=== PATIENT | female | born 1935 | race Caucasian/White ===

== ENCOUNTER 2021-10-15 08:49 | Inpatient (IN) | payer MEDICARE, SELFPAY ==
[2021-10-15] VITALS (30 sets, daily range): BP systolic 125–146; BP diastolic 60–91; PULSE 55–79; RESP 14–32; TEMP 36.6–36.9; O2SAT 92–100; BMI 32.3
--- NOTE | 2021-10-15 | ECHO_ITS ---
Patient Info Name: Lyudmila Stapleton Age: 85 years : 1935 Gender: Female Ht: 67 in Wt: 206 lbs BSA: 2.13 m2 HR: 65 bpm BP: 130 / 63 mmHg Exam Date: 10/15/2021 4:04 PM Exam Location: [facility] Patient Status: Inpatient Admit Date: 10/15/2021 Staff Ordering Physician: Debbie Peres NP Digital Content Coordinator: Mohinder Miranda RDCS Attending Provider: Antwon Albarado MD Referring Physician: Larisa GUADALUPE; Exam Type: CA echo doppler color flow Study Info Indications R60.9 - Edema, unspecified Complete two-dimensional, color flow and Doppler transthoracic echocardiogram is performed. Summary 1. Complete two-dimensional, color flow and Doppler transthoracic echocardiogram is performed. 2. Normal left ventricular size and thickness with good contractility of all segments. Ejection fraction 60-65%. Diastolic function indeterminate. 3. Mild right ventricular enlargement with normal function. 4. Left atrial chamber dimension is mildly enlarged. 5. Right atrial chamber dimension is mildly enlarged. 6. Moderate pulmonary hypertension, estimated pulmonary arterial systolic pressure is 51 mmHg. 7. There is mild tricuspid valve regurgitation. 8. Calcified aortic root. 9. Probable sinus rhythm. Left Ventricle Left ventricular chamber dimension is normal. Left ventricular systolic function is normal, estimated at 60-65%. There is no increased left ventricular wall thickness. Left ventricular septal wall motion is normal. The left ventricular diastolic function is indeterminate. Right Ventricle Right ventricular chamber dimension is mildly enlarged. Right ventricular systolic function is normal. Left Atria Left atrial chamber dimension is mildly enlarged. Right Atria Right atrial chamber dimension is mildly enlarged. Aortic Valve The aortic valve is trileaflet. There is mild aortic valve sclerosis. There is no aortic valve stenosis. There is no aortic valve regurgitation. Pulmonic Valve The pulmonic valve is normal. There is no pulmonic valve stenosis. There is no pulmonic regurgitation. Mitral Valve The mitral valve has normal leaflets. There is no mitral valve stenosis. There is trace mitral valve regurgitation. Tricuspid Valve The tricuspid valve leaflets are normal. There is no significant tricuspid valve stenosis. There is mild tricuspid valve regurgitation. Moderate pulmonary hypertension, estimated pulmonary arterial systolic pressure is 51 mmHg. Pericardium/Pleural The pericardium appears normal. There is no pericardial effusion. Inferior Vena Cava Normal inferior vena cava with >50% collapse upon inspiration consistent with Empty right atrial pressure, 10 mmHg. Aorta The aortic root size at the sinus of Valsalva is normal. The prox ascending aorta size is normal. There is mild aortic atherosclerosis. Left Ventricular Outflow Tract Name Value Normal LVOT 2D LVOT Diameter 1.7 cm LVOT Doppler LVOT Peak Gradient 6 mmHg LVOT Mean Gradient 4 mmHg LVOT VTI 27 cm
--- NOTE | ~2021-10-15 | CT_ITS ---
EXAMINATION: CT soft tissue neck wo con DATE: 10/16/2021 07:52 INDICATION: Angioedema. TECHNIQUE: Computed tomography (CT) of the neck was performed without intravenous contrast. Automated exposure control and iterative reconstruction technique were employed. The dose-length product was 5 51.92 mGy-cm. COMPARISON: Neck soft tissue radiographs 10/15/2021 FINDINGS: The visualized portions of the lung apices demonstrate scattered groundglass opacities and septal thickening. There is a partially visualized is a 3.7 x 2.8 cm mass in right lung upper lobe. T here is a 12 mm nodule in right upper lobe. There are likely changes of ocular lens replacement surge bruce. There is bilateral periorbital soft tissue swelling. There is fat stranding in the face and ant erior neck. There is an 8 mm nodule in left thyroid lobe, likely not clinically significant. Calcifie d mediastinal lymph nodes are consistent with old granulomatous disease. The mastoid air cells are no rmal. The paranasal sinuses are clear. There is moderate cervical spondylosis. IMPRESSION: 1. Soft tissue swelling of the face and anterior neck. 2. Diffuse lung disease, likely mild pulmonary edema. 3. Mass and nodule in right lung upper lobe, consistent with pneumonia and/or malignancy. Noncontrast chest CT is recommended in one month. Reviewed, dictated and finalized at location A. IMPRESSION: 1. Soft tissue swelling of the face and anterior neck. 2. Diffuse lung disease, likely mild pulmonary edema. 3. Mass and nodule in right lung upper lobe, consistent with pneumonia and/or m alignancy. Noncontrast chest CT is recommended in one month.
--- NOTE | ~2021-10-15 | XR_ITS ---
XR chest 1V portable DATE: 10/15/2021 09:26 INDICATION: Dyspnea. Face and neck swelling TECHNIQUE: Portable upright AP chest on 10/15/2021 at 0917 hours COMPARISON: None FINDINGS: There is an approximately 2.8 cm mass density versus focal consolidation overlying the righ t upper lobe There is mild infiltrate or atelectasis in the lower lung zones, right greater than left. Preliminary size. Aortic calcification and unfolding. Diffuse osteopenia. IMPRESSION: 2.8 cm mass versus focal consolidation, right upper lobe. Right upper lobe lung cancer is not excluded; differential diagnosis includes focal pulmonary consolidation/pneumonia. Patchy infiltrate or atelectasis, lower lung zones Reviewed, dictated and finalized at location B. IMPRESSION: 2.8 cm mass versus focal consolidation, right upper lobe. Right upp er lobe lung cancer is not excluded; differential diagnosis includes focal pulm onary consolidation/pneumonia. Patchy infiltrate or atelectasis, lower lung zones
--- NOTE | ~2021-10-15 | XR_ITS ---
EXAMINATION: XR soft tissue neck DATE: 10/15/2021 09:24 INDICATION: Face swelling. Neck edema. Shortness of breath. TECHNIQUE: 2 views of the neck soft tissues were obtained. COMPARISON: None. FINDINGS: The adenoids, palatine tonsils, prevertebral soft tissues, epiglottis, and airway are clarice l. There is a mass in right lung upper lobe. IMPRESSION: 1. Mass in right lung upper lobe suspicious for primary bronchogenic carcinoma. Chest CT with contras t is recommended. Reviewed, dictated and finalized at location A. IMPRESSION: 1. Mass in right lung upper lobe suspicious for primary bronchogenic carcinoma. Chest CT with contrast is recommended.
--- NOTE | ~2021-10-15 | XR_ITS ---
EXAMINATION: XR chest 1V portable DATE: 10/16/2021 13:59 INDICATION: Pneumonia versus congestive heart failure TECHNIQUE: frontal view of the chest was obtained. COMPARISON: 10/15/2021 FINDINGS: Persistent masslike airspace opacity in the right midlung zone. Additional mild opacities at the righ t lung base. No pleural effusion or pneumothorax. Cardiomegaly. Mild to moderate degenerative skeleta l changes in the spine and at the shoulders. IMPRESSION: 1. Unchanged opacities in the right mid lung zone and right lung base which could represent pneumonia although the more masslike opacity in the right upper lobe as seen on prior neck CT is also concerni ng for malignancy and would recommend radiographic follow-up to resolution in one month. Reviewed, dictated and finalized at location A. IMPRESSION: 1. Unchanged opacities in the right mid lung zone and right lung base which cou ld represent pneumonia although the more masslike opacity in the right upper lo be as seen on prior neck CT is also concerning for malignancy and would recomme nd radiographic follow-up to resolution in one month.
--- NOTE | 2021-10-15 09:02 | ED.ALLEREA ---
HPI - Allergic Reaction General Chief complaint: Allergic Reaction Stated complaint: allergic reaction Time Seen by Provider: 10/15/21 08:54 Source: patient and family Mode of arrival: ambulatory Limitations: no limitations History of Present Illness HPI narrative: The patient is a 85-year-old female with a history of COPD presenting to the emergency department for evaluation of facial swelling. Patient's provides most of the history as patient is having significant difficulty with speech secondary to swelling of the tongue. Patient states that she has been on doxycycline for 2 days for COPD exacerbation. Patient has had increased swelling overnight for which her was giving her Benadryl without much improvement in her symptoms. Patient denies history of allergic reaction in the past. No history of anaphylaxis. She reports eye swelling as well as facial swelling. Patient denies itching, urticaria. She denies shortness of breath. She does report swelling in her neck which makes swallowing difficult. She denies fever, chills, nausea or vomiting. Related Data Allergies Allergy/AdvReac Type Severity Reaction Status Date / Time doxycycline Allergy Severe Swelling Verified 10/15/21 09:10 of Lip/Tongue/Throat Penicillins Allergy Unknown RASH Verified 06/08/15 09:12 Review of Systems Review of Systems: ROS unobtainable: Yes unobtainable due to medical condition [facility] Social History Social History (Updated 10/15/21 @ 09:05 by Merlene Love MD) Smoking status: Never smoker Alcohol intake: never Substance use: never Living arrangements: with family Gender identity (if verbalized by the patient): Female Exam Narrative: GENERAL: Awake, alert, ambulatory HEAD: Normocephalic, atraumatic. EYES: Significant periorbital edema. 2+ PERRLA bilaterally, small amount of mucoid discharge ENT: Nares clear, no rhinorrhea or epistaxis. Mucous membranes moist. Facial and lip edema present. Tongue edema present, NECK: Edematous and mildly erythematous. CHEST: No respiratory distress, patient with coarse respirations in the bilateral lower lobes with mild expiratory wheezing, no tachypnea HEART: Regular rate, sinus rhythm ABDOMEN:Non distended, non tender EXTREMITIES: Normal range of motion. Bilateral pitting edema 1+ SKIN: Warm, dry, no rash. No urticaria or lesions. NEURO:No focal deficits. Alert and oriented x3 Course Vital Signs Vital signs: Vital Signs Temperature 36.9 C 10/15/21 08:57 Pulse Rate 72 10/15/21 08:57 Respiratory Rate 17 10/15/21 08:57 Blood Pressure 145/69 H 10/15/21 08:57 Pulse Oximetry 97 10/15/21 08:57 Oxygen Delivery Room Air 10/15/21 08:57 Temperature 36.8 C 10/15/21 12:20 Pulse Rate 73 10/15/21 12:20 Respiratory Rate 22 H 10/15/21 12:20 Blood Pressure 131/60 10/15/21 12:20 Pulse Oximetry 95 10/15/21 12:20 Oxygen Delivery Room Air 10/15/21 08:57 MDM - Allergic Reaction MDM Narrative Medical decision making narrative: Patient presented to the emergency department for evaluation of facial and neck swelling, with concern for significant angioedema and potential airway compromise on initial assessment. Patient with significant difficulty opening mouth, uvula is not identified secondary to limited exam due to tongue edema, neck edema. Differential includes infectious source, allergic reaction secondary to an antibiotic, angioedema. Patient was given intramuscular epinephrine, IV was obtained and was given IV fluids, IV steroids, famotidine, Benadryl. She was monitored closely. She was given IV TXA and FFP. She was given additional intramuscular epinephrine and additional dose of IV steroids. I did alert Dr. Rios with ENT as well as Dr. Grijalva with anesthesia regarding patient and that she may be a difficult intubation and potentially would require assistance if she were to decompensate in the emergency department. Dr. Reese junior
[2021-10-15] MEDS: ALBUTEROL SULFATE NEB 2.5 MG/0.5 ML INH 5 MG (09:04)
[2021-10-15] MEDS: IPRATROPIUM BR 0.02% INH SOLN 0.5 MG/2.5 ML VIAL ×2 (09:04→09:20)
[2021-10-15] MEDS: EPINEPHrine HCL INJ 1 MG/ML AMPUL 0.3 MG IM ×2 (09:06→10:55)
[2021-10-15] MEDS: FAMOTIDINE 20 MG/2 ML VIAL 40 MG IV PUSH (09:07)
[2021-10-15] MEDS: diphenhydrAMINE HCl INJ 50 MG/ML VIAL IV PUSH (09:07)
[2021-10-15] MEDS: methylPREDNISolone SOD SUCC 125 MG VIAL IV PUSH ×2 (09:07→10:55)
[2021-10-15] MEDS: ALBUTEROL SULFATE NEB 2.5 MG/0.5 ML INH 10 MG (09:20)
[2021-10-15 09:25] LABS: Basophils Percent Auto 0.2 % (0.2-1.2); Eosinophils Absolute Auto 0.1 K/mm3 (0-0.3); Eosinophils Percent Auto 0.8 % (0-4.4); Hematocrit 41.1 % (37.0-47.0); Hemoglobin 13.6 g/dL (12.0-15.0); Immature Granulocyte Absolute 0.05 K/mm3 (0.00-0.031); Immature Granulocyte Percent A 0.5 % (0-0.5); Lymphocytes Absolute Auto 1.76 K/mm3 (0.9-3.2); Lymphocytes Percent Auto 15.9 % (18.3-44.2); Mean Corpuscular HGB Conc 33.1 g/dl (32-36); Mean Corpuscular Hemoglobin 27.8 pg (26-34); Mean Corpuscular Volume 83.9 fl (80-100); Monocytes Absolute Auto 0.7 K/mm3 (0.1-0.6); Monocytes Percent Auto 6.4 % (2.6-8.5); Neutrophils Absolute Auto 8.5 K/mm3 (1.3-6.7); Neutrophils Percent Auto 76.2 % (45.5-73.1); Platelet Count Result 464 k/mm3 (150-375); Red Cell Distribution Width 13.2 % (11.5-14.5); White Blood Count 11.1 K/mm3 (4.5-10.0)
[2021-10-15 09:32] LABS: Anion Gap 15 mmol/L (8-16); Blood Urea Nitrogen 23 mg/dL (7-17); Calcium 9.8 mg/dL (8.4-10.2); Carbon Dioxide 27 mmol/L (22-30); Chloride 95 mmol/L (98-107); Estimated CRCL calculation 41 ml/min; Estimated Glomerular Filt Rate 47; Glucose 153 mg/dL (65-110); Potassium 3.6 mmol/L (3.4-5.0); Sodium 137 mmol/L (137-145)
[2021-10-15 10:05] LABS: Lactic Acid Reflex 1.9 mmol/L (0.7-2.0)
[2021-10-15 10:22] LABS: CRP 17.4 mg/dL (<1.0)
[2021-10-15 10:24] LABS: Procalcitonin 0.1 ng/mL
[2021-10-15] MEDS: SODIUM CHLORIDE 0.9% IV 500 ML 999 ML IV CONT (10:54)
[2021-10-15 11:06] LABS: INR 1.2; Prothrombin Time 14.4 Seconds (11.1-14.7)
[2021-10-15 11:07] LABS: Partial Thromboplastin Time 30.3 SECONDS (22.3-36.8)
--- NOTE | 2021-10-15 12:38 | WPDCNINT ---
Assessment and Plan Assessment and plan (1) Angioedema: Code(s): T78.3XXA - Angioneurotic edema, initial encounter Status: Acute Assessment and Plan: Angioedema could be multifactorial likely related to doxycycline as she started this medication 2 days prior to admission. Is also on lisinopril at home could be the culprit -patient presented with facial swelling including lip eyelids facial puffiness and tongue swelling. Patient did complain of some difficulty swelling but denies any difficulty with breathing -she was taking doxycycline for COPD exacerbation and cough -patient was given Solu-Medrol 125 mg IV x2 in the ER, patient also received epinephrine 0.3 mg IM x2 in the ER along with Pepcid and Benadryl -patient receiving 1 unit of FFP upon arrival to the ICU which was ordered from the ER -currently strict NPO (2) Hyperlipidemia: Code(s): E78.5 - Hyperlipidemia, unspecified Status: Acute Assessment and Plan: Patient on statin at home, currently will hold atorvastatin (3) Hypertension: Code(s): I10 - Essential (primary) hypertension Status: Acute Assessment and Plan: Patient is on amlodipine, furosemide, lisinopril/hydrochlorothiazide at home -will hold all antihypertensive -if patient becomes hypertensive will give IV hydralazine p.r.n. (4) Diabetes: Code(s): E11.9 - Type 2 diabetes mellitus without complications Status: Acute Assessment and Plan: Patient with history of diabetes, on metformin at home, -will add sliding scale insulin for now -Accu-Cheks Q 4 hours as patient on steroids - (5) Hypothyroidism: Code(s): E03.9 - Hypothyroidism, unspecified Status: Acute Assessment and Plan: On a patient on levothyroxine at home, will continue to hold as of now Plan DVT prophylaxis: Lovenox SQ Stress ulcer prophylaxis: Famotidine Nutrition: Strict NPO Discussed with patient and Fabian, updated both of them with patient's condition and plan of care. The patient did tell me that she does not want to be intubated or resuscitated in the ER when I saw her Code Status: DNR/DNI Critical Care Time Spent: 44 minutes Due to a high probability of clinically significant, life threatening deterioration, the patient required my highest level of preparedness to intervene emergently and I personally spent this critical care time directly and personally managing the patient. This critical care time included obtaining a history; examining the patient; pulse oximetry; ordering and review of studies; arranging urgent treatment with development of a management plan; evaluation of patient's response to treatment; frequent reassessment; and discussions with other providers. It was exclusive of separately billable procedures and treating other patients and teaching time. Please see Assessment and Plan section and the rest of the note for further information on patient assessment and treatment Psychology Teacher Consult Note Consult date: 10/15/21 Reason for consult: Angioedema status post doxycycline HPI: Lyudmila Stapleton is a 85 year old female with past medical history of COPD, essential hypertension, hyperlipidemia, hypothyroidism, chronic lower extremity swelling, diabetes, the ED on 10/15/2021 with complains of facial swelling, swelling of the tongue, lips, difficulty with speech. Patient states that she has been on doxycycline for 2 days for COPD exacerbation. Patient had increased swelling overnight for which the has been given Benadryl without improvement so she was brought to the ER. Patient does not have history of any allergic or anaphylactic reactions. Her eyes were swollen to level but she could not open her eyes. She did report some swelling and neck which made her swallowing difficulty. She denies any fevers, chills. In the ER, she was given epinephrine 0.3 mg IM x2, Solu-Medrol 125 mg IV x2, famotidine IV, Benadryl IV. FFP also ordered in the
--- NOTE | 2021-10-15 12:52 | ADMGEN ---
This patient, Lyudmila Stapleton, was admitted to Intensive Care [id number]. Patient/family oriented to hospital policies and general routines including ID bracelet, bed and alarms, visiting hours, pain management, procedures, bathroom and other care routines, personal items, smoking policy, room service/diet, and visiting hours. Information on how to activate the Rapid Response Team has been discussed. Patient/Family are encouraged to report perceived risks to care and to ask questions if they do not understand what they are told or what they should do.
[2021-10-15] MEDS: IPRATROPIUM BR 0.02% INH SOLN 0.5 MG/2.5 ML VIAL INHALATION ×2 (14:19→20:15)
[2021-10-15] MEDS: ALBUTEROL SULFATE NEB 2.5 MG/3 ML INH 5 MG INHALATION ×2 (14:19→20:15)
--- NOTE | 2021-10-15 14:59 | PM.IMHP ---
H&P: HPI History of Present Illness Date/Time: 10/15/21 1300 Chief Complaint: Allergic reaction Narrative: This is a 85-year-old female patient who has been coughing and was placed on doxycycline for pneumonia. The patient stated that she only took 3 of the doxycycline so far. The patient also has a history of COPD. The patient came to the emergency room for evaluation of facial swelling. The patient has angioedema around her eyes and lips and her tongue is swollen as well. The patient has had increased swelling overnight and has taken Benadryl without much improvement of her symptoms. The patient has also been on lisinopril and has never had any angio edema prior. Patient also has swelling to her neck which is making it difficult for her to swallow. The patient was given IV fluids, Tylenol IV, Benadryl, Pepcid, epinephrine, albuterol, Atrovent, and Solu-Medrol in the emergency room. The patient is able to open her eyes at this time and states that she is feeling much better. She is currently in the ICU and is able to open her eyes. She is able to talk and answer questions. Her white counts 11.1. Creatinine 1.10 BUN 23. Glucose 153. C reactive protein 17.4. Chest x-ray was read as the following?2.8 cm mass versus focal consolidation, right upper lobe. Right upper lobe lung cancer is not excluded; differential diagnosis includes focal pulmonary consolidation/pneumonia. Patchy infiltrate or atelectasis, lower lung zones Soft tissue the neck was read as the following. Mass in right lung upper lobe suspicious for primary bronchogenic carcinoma. Chest CT with contrast is recommended. Tent Assembler has been consulted and agreed to accept the patient into the ICU. She was seen by the professor of physics already. The patient is being admitted to inpatient ICU on the date of service of 10/15/2021. Review of Systems Review of Systems: See HPI All systems reviewed & are unremarkable except as noted in HPI and below Constitutional: Constitutional: Reports as per HPI and Reports no additional constitutional complaints Eyes: Eyes: Reports as per HPI and Reports no additional eye complaints ENT: Reports system reviewed and no additional complaints, except as documented and Reports Normal hearing present Cardiovascular: Cardiovascular: Reports no additional cardiovascular complaints Respiratory: Respiratory: Reports no additional respiratory complaints and Reports no additional respiratory complaints Gastrointestinal: Gastrointestinal: Reports as per HPI and Reports no additional gastrointestinal complaints Musculoskeletal: Musculoskeletal: Reports no additional musculoskeletal complaints Integumentary/Breasts: Skin/Breast: Reports system reviewed and no additional complaints, except as docu and Reports as per HPI Neurologic: Reports system reviewed and no additional complaints, except as documented, Reports as per HPI and Reports Normal hearing present Psychiatric: Psychiatric: Reports no additional psychiatric complaints and Reports as per HPI Endocrine: Endocrine: Reports no additional endocrine complaints Hematologic/Lymphatic: Hematologic/Lymphatic: Reports no additional hematologic/lymphatic complaints Allergic/Immunologic: Allergic/Immunologic: Reports no additional allergic/immunologic complaints [facility] Past Medical History Medical History (Updated 10/15/21 @ 15:26 by Debbie Peres NP) Diabetes Hyperlipidemia Hypertension Hypothyroidism Surgical History Surgical History (Updated 10/15/21 @ 15:05 by Debbie Peres NP) H/O: hysterectomy Family History Family History Mother Breast cancer Father Hx of CABG Social History Social History (Updated 10/15/21 @ 15:09 by Debbie Peres NP) Social History: The patient tells me that she is and has 3 sons. Her 3 sons of the durable power book illustrator for healthcare. She lives home alone by herself. She retir
[2021-10-15 16:33] LABS: Glucose Point of Care 243 mg/dl (65-105)
[2021-10-15] MEDS: INSULIN ASPART (*BKC) 100 UNITS/ML SUB-Q (17:11)
[2021-10-15] MEDS: diphenhydrAMINE HCl INJ 50 MG/ML VIAL 25 MG IV PUSH ×2 (17:11→23:15)
[2021-10-15] MEDS: methylPREDNISolone SOD SUCC 125 MG VIAL 60 MG IV PUSH ×2 (17:12→23:14)
[2021-10-15] MEDS: FAMOTIDINE 20 MG/2 ML VIAL IV PUSH (21:16)
[2021-10-15 21:30] LABS: Glucose Point of Care 166 mg/dl (65-105)
[2021-10-15 23:28] LABS: Glucose Point of Care 173 mg/dl (65-105)
[2021-10-16] VITALS (18 sets, daily range): BP systolic 117–152; BP diastolic 53–86; PULSE 53–78; RESP 15–24; TEMP 36.1–36.9; O2SAT 91–99
[2021-10-16] MEDS: IPRATROPIUM BR 0.02% INH SOLN 0.5 MG/2.5 ML VIAL INHALATION ×4 (02:00→20:13)
[2021-10-16] MEDS: ALBUTEROL SULFATE NEB 2.5 MG/3 ML INH 5 MG INHALATION ×4 (02:00→20:12)
[2021-10-16 04:13] LABS: Basophils Percent Auto 0.2 % (0.2-1.2); Hematocrit 37.3 % (37.0-47.0); Hemoglobin 11.9 g/dL (12.0-15.0); Immature Granulocyte Absolute 0.03 K/mm3 (0.00-0.031); Immature Granulocyte Percent A 0.3 % (0-0.5); Lymphocytes Percent Auto 12.5 % (18.3-44.2); Mean Corpuscular HGB Conc 31.9 g/dl (32-36); Mean Corpuscular Hemoglobin 27.5 pg (26-34); Mean Corpuscular Volume 86.3 fl (80-100); Mean Platelet Volume 9.8 fl (7.4-10.4); Monocytes Absolute Auto 0.3 K/mm3 (0.1-0.6); Monocytes Percent Auto 2.4 % (2.6-8.5); Neutrophils Absolute Auto 8.8 K/mm3 (1.3-6.7); Neutrophils Percent Auto 84.6 % (45.5-73.1); Platelet Count Result 403 k/mm3 (150-375); Red Blood Count 4.32 M/mm3 (4.2-5.4); Red Cell Distribution Width 13.4 % (11.5-14.5); White Blood Count 10.4 K/mm3 (4.5-10.0)
[2021-10-16 04:23] LABS: Lactic Acid Reflex 2.3 mmol/L (0.7-2.0)
[2021-10-16 04:28] LABS: Alanine Aminotransferase 18 U/L (6-35); Albumin Level 3.5 g/dL (3.5-5.1); Alkaline Phosphatase 204 U/L (38-126); Anion Gap 11 mmol/L (8-16); Aspartate Amino Transferase 25 U/L (14-36); Bilirubin,Total 0.3 mg/dL (0.2-1.3); Blood Urea Nitrogen 20 mg/dL (7-17); Calcium 9.6 mg/dL (8.4-10.2); Carbon Dioxide 26 mmol/L (22-30); Chloride 105 mmol/L (98-107); Estimated CRCL calculation 54 ml/min; Estimated Glomerular Filt Rate > 60; Glucose 187 mg/dL (65-110); Magnesium 2.1 mg/dL (1.6-2.3); Potassium 4.1 mmol/L (3.4-5.0); Sodium 142 mmol/L (137-145)
[2021-10-16 04:40] LABS: CRP 11.9 mg/dL (<1.0)
[2021-10-16] MEDS: diphenhydrAMINE HCl INJ 50 MG/ML VIAL 25 MG IV PUSH ×3 (05:43→18:23)
[2021-10-16] MEDS: methylPREDNISolone SOD SUCC 125 MG VIAL 60 MG IV PUSH ×3 (05:44→17:25)
[2021-10-16] MEDS: LEVOTHYROXINE SODIUM INJ 100 MCG/5 ML VIAL 62.5 MCG IV PUSH (05:47)
[2021-10-16 05:58] LABS: Glucose Point of Care 181 mg/dl (65-105)
[2021-10-16 07:11] LABS: Reflex Lactic Acid Yes or No Add Lactic
--- NOTE | 2021-10-16 07:34 | PM.IMPN ---
Progress Note: A&P Assessment and Plan (1) Angioedema: Code(s): T78.3XXA - Angioneurotic edema, initial encounter Status: Acute Assessment and Plan: Resolving Angioedema could be multifactorial likely related to doxycycline as she started this medication 2 days prior to admission. She is also on lisinopril at home could be the culprit. Have placed both patient is on her list of allergies -patient presented with facial swelling including lip eyelids facial puffiness and tongue swelling. Significantly improved this morning -Patient did complain of some difficulty swelling but denies any difficulty with breathing, no complaints this morning -she was taking doxycycline for COPD exacerbation and cough -patient was given Solu-Medrol 125 mg IV x2 in the ER, patient also received epinephrine 0.3 mg IM x2 in the ER along with Pepcid and Benadryl -patient receiving 1 unit of FFP upon arrival to the ICU which was ordered from the ER -currently strict NPO -continue Solu-Medrol, Benadryl, Pepcid (2) Allergic reaction: Code(s): T78.40XA - Allergy, unspecified, initial encounter Status: Acute (3) Hypothyroidism: Code(s): E03.9 - Hypothyroidism, unspecified Status: Acute Assessment and Plan: On a patient on levothyroxine at home, started patient on IV levothyroxine (4) Diabetes: Code(s): E11.9 - Type 2 diabetes mellitus without complications Status: Acute Assessment and Plan: Patient with history of diabetes, on metformin at home, -will add sliding scale insulin for now -Accu-Cheks Q 4 hours as patient on steroids - (5) Hyperlipidemia: Code(s): E78.5 - Hyperlipidemia, unspecified Status: Acute Assessment and Plan: Patient on statin at home, will restart once able to take p.o. (6) Hypertension: Code(s): I10 - Essential (primary) hypertension Status: Acute Assessment and Plan: Patient is on amlodipine, furosemide, lisinopril/hydrochlorothiazide at home -patient is hypertensive, will restart amlodipine, furosemide (7) Pulmonary nodule: Code(s): R91.1 - Solitary pulmonary nodule Status: Acute (8) Pulmonary lesion of right side of chest: Code(s): J98.4 - Other disorders of lung Status: Acute Assessment and Plan: Patient has a 2.8 cm mass on the right upper lobe, incidental finding on chest x-ray -will have pulmonology and Oncology evaluate the patient Plan DVT prophylaxis: Lovenox SQ Stress ulcer prophylaxis: Famotidine Nutrition: Will start clear liquid diet Code Status: DNR/DNI Subjective Date/time seen: 10/16/21 07:34 Interval history: Sitting up to chair, chatting with family. No complaints. No overnight events noted. No chest pain or shortness of breath. No nausea, vomiting or diarrhea. No fevers or chills. Review of Systems Review of Systems: 12 point review of systems was assessed and was negative except as noted in the HPI Exam Narrative: General: No acute distress, alert and oriented per baseline HEENT: Atraumatic, normocephalic, mucous membranes moist CV: Regular rate and rhythm, S1, S2 Lungs: Clear to auscultation bilaterally, no rales or crackles noted, no wheezes, good air entry Abdomen: Soft, nontender, nondistended Extremities: Normal to inspection, trace nonpitting edema bilaterally Skin: No rashes noted, no lesions or wounds seen Psych: Euthymic, normal affect Objective Data Vital Signs Vital Signs: Vital Signs - 24 hr 10/15/21 08:57 10/15/21 09:00 10/15/21 09:07 Temperature 98.5 F Pulse Rate 72 78 76 Respiratory Rate 17 17 14 Blood Pressure 145/69 H Pulse Oximetry 97 Oxygen Delivery Room Air 10/15/21 09:10 10/15/21 10:14 10/15/21 09:00 Temperature Pulse Rate 73 74 69 Respiratory Rate 18 24 H 22 H Blood Pressure 145/69 H Pulse Oximetry 96 Oxygen Delivery 10/15/21 09:34 10/15/21 09:45 10/15/21 10:00 Temperat
[2021-10-16 08:09] LABS: Lactic Acid 2.3 mmol/L (0.7-2.0)
[2021-10-16] MEDS: ENOXAPARIN 40 MG/0.4 ML SYRINGE SUB-Q (08:45)
[2021-10-16] MEDS: FAMOTIDINE 20 MG/2 ML VIAL IV PUSH ×2 (08:46→20:26)
[2021-10-16 08:49] LABS: Glucose Point of Care 193 mg/dl (65-105)
[2021-10-16] MEDS: FUROSEMIDE INJ 40 MG/4 ML VIAL 20 MG IV PUSH (09:15)
--- NOTE | 2021-10-16 09:35 | WPDINTPN ---
Progress Note: A&P Assessment and Plan (1) Angioedema: Code(s): T78.3XXA - Angioneurotic edema, initial encounter Status: Acute Assessment and Plan: Resolving Angioedema could be multifactorial likely related to doxycycline as she started this medication 2 days prior to admission. She is also on lisinopril at home could be the culprit. Have placed both patient is on her list of allergies -patient presented with facial swelling including lip eyelids facial puffiness and tongue swelling. Significantly improved this morning -Patient did complain of some difficulty swelling but denies any difficulty with breathing, no complaints this morning -she was taking doxycycline for COPD exacerbation and cough -patient was given Solu-Medrol 125 mg IV x2 in the ER, patient also received epinephrine 0.3 mg IM x2 in the ER along with Pepcid and Benadryl -patient receiving 1 unit of FFP upon arrival to the ICU which was ordered from the ER -currently strict NPO -continue Solu-Medrol, Benadryl, Pepcid (2) Hyperlipidemia: Code(s): E78.5 - Hyperlipidemia, unspecified Status: Acute Assessment and Plan: Patient on statin at home, will restart once able to take p.o. (3) Hypertension: Code(s): I10 - Essential (primary) hypertension Status: Acute Assessment and Plan: Patient is on amlodipine, furosemide, lisinopril/hydrochlorothiazide at home -patient is hypertensive, will restart amlodipine, furosemide (4) Diabetes: Code(s): E11.9 - Type 2 diabetes mellitus without complications Status: Acute Assessment and Plan: Patient with history of diabetes, on metformin at home, -will add sliding scale insulin for now -Accu-Cheks Q 4 hours as patient on steroids - (5) Hypothyroidism: Code(s): E03.9 - Hypothyroidism, unspecified Status: Acute Assessment and Plan: On a patient on levothyroxine at home, started patient on IV levothyroxine (6) Pulmonary lesion of right side of chest: Code(s): J98.4 - Other disorders of lung Status: Acute Assessment and Plan: Patient has a 2.8 cm mass on the right upper lobe, incidental finding on chest x-ray -will have pulmonology and Oncology evaluate the patient Plan DVT prophylaxis: Lovenox SQ Stress ulcer prophylaxis: Famotidine Nutrition: Will start clear liquid diet 10/15: Discussed with patient and son Fabian, updated both of them with patient's condition and plan of care. The patient did tell me that she does not want to be intubated or resuscitated when I saw her in the ER Code Status: DNR/DNI Critical Care Time Spent: 33 minutes Due to a high probability of clinically significant, life threatening deterioration, the patient required my highest level of preparedness to intervene emergently and I personally spent this critical care time directly and personally managing the patient. This critical care time included obtaining a history; examining the patient; pulse oximetry; ordering and review of studies; arranging urgent treatment with development of a management plan; evaluation of patient's response to treatment; frequent reassessment; and discussions with other providers. It was exclusive of separately billable procedures and treating other patients and teaching time. Please see Assessment and Plan section and the rest of the note for further information on patient assessment and treatment Subjective Date/time seen: 10/16/21 09:35 Interval history: Reason for consult: Angioedema 10/16/2021: Patient seen and examined the ICU, facial swelling along with swelling of the lips, tongue and neck after do significantly. Patient states easy to breathe, no drooling, no difficulty swallowing she feels she is at baseline. Hemodynamically stable, adequate urine output, afebrile Review of Systems Review of Systems: All systems reviewed & are unremarkable except as noted in HPI and below Exam Narrative:
--- NOTE | 2021-10-16 10:37 | PM.CNPUL ---
Assessment and Plan Assessment and plan (1) Pneumonia: Code(s): J18.9 - Pneumonia, unspecified organism Status: Acute Assessment and Plan: this 85-year-old female had an acute illness characterized by mild cough productive of dark yellow phlegm and also by night sweats 5-10 days prior to coming to the hospital for facial and tongue swelling related to angio neurotic edema. Patient has been treated for angioneurotic edema with significant improvement. Chest x-ray showed right upper lobe consolidation, more clearly seen on neck soft tissue CT. The patient's acute onset of cough and night sweats in conjunction with the CT findings suggests community-acquired pneumonia. The mosaic pattern also seen on the CT could be related to bronchospasm from the allergic reaction. Currently, the patient has no respiratory complaints and the lung exam is unremarkable. Plan: I would start the patient on antibiotic coverage for community-acquired pneumonia. Repeat chest x-ray was ordered. we will monitor the right upper lobe consolidation. If no clearing with antibiotics, we will consider further workup. (2) Angioedema: Code(s): T78.3XXA - Angioneurotic edema, initial encounter Status: Acute (3) Allergic reaction: Code(s): T78.40XA - Allergy, unspecified, initial encounter Status: Acute (4) Hypothyroidism: Code(s): E03.9 - Hypothyroidism, unspecified Status: Acute (5) Diabetes: Code(s): E11.9 - Type 2 diabetes mellitus without complications Status: Acute (6) Pulmonary lesion of right side of chest: Code(s): J98.4 - Other disorders of lung Status: Acute History of Present Illness History of Present Illness Consult date: 10/16/21 Chief complaint: angioedema Narrative: This 85-year-old female presented with a 2 day history of facial and tongue swelling. The patient was in her usual state of health until approximately 10 days ago when she started having cough productive of small amount of dark yellow phlegm. Approximately 5 days later, the patient started to have night sweats. She had no fever chills hemoptysis chest pain orthopnea palpitations or wheezing. She has had chronic lower extremity edema. The patient was prescribed doxycycline by her primary care provider for possible respiratory infection. The patient took approximately 3 doses of doxycycline. One day prior to admission, she started having facial swelling involving eyes, lips as well as tongue. She took some Benadryl at home without any improvement. The next day the patient presented to the emergency room because of increasing facial and tongue swelling. When evaluated in the emergency room, she had no shortness of breath and her oxygen saturation on room air was 97%. Per ER physician note, she had mild expiratory wheezing bilaterally. The patient was treated with antihistamines, IV steroids for angioneurotic edema. On laboratory testing she had mild leukocytosis with left shift, elevated CRP, mild elevation of lactic acid. Since admission to the hospital her clinical condition has significantly improved. I was asked to see the patient because she was found to have a consolidation in the right upper lobe seen on chest x-ray and also on neck soft tissue CT. Patient has no prior history of lung disease. She is a light smoker. There are no previous x-rays for comparison. Many years ago she was prescribed rescue inhaler for p.r.n. use. In addition to consolidation in the right upper lobe, the neck CT also showed mosaic pattern in the upper lung regions. Currently she is doing much better with facial edema and tongue edema significantly improved; she is breathing room air. Past medical history is also significant for hypertension, diabetes, hypothyroidism. Patient was on MAGGIE-inhibitor for hypertension. She never had history of heart disease. Review of Systems Review of Systems: All system review is n
[2021-10-16] MEDS: amLODIPine BESYLATE 5 MG TABLET 10 MG PO (10:54)
[2021-10-16 12:19] LABS: Glucose Point of Care 184 mg/dl (65-105)
--- NOTE | 2021-10-16 15:18 | PC.NURSE ---
This patient, Lyudmila Stapleton, was transferred to [facility] on 10/16/21 at 1518. Personal belongings sent with patient. Report given to Lilly. Appropriate documentation sent with patient.
[2021-10-16 16:25] LABS: Glucose Point of Care 228 mg/dl (65-105)
[2021-10-16] MEDS: INSULIN ASPART (*BKC) 100 UNITS/ML SUB-Q (17:19)
--- NOTE | 2021-10-16 18:27 | PDONCCN ---
HPI - Date of Consult Date/Time: 10/16/21 18:27 Requesting Physician: Teresa Villalba DO Primary Care Provider: PHYSICIAN NOT ON STAFF - Consult Narrative Reason for consult: Lung mass Narrative: Lyudmila Stapleton is a 85 year old female who developed cough and was treated with doxycycline for possible bronchitis and pneumonia. She only took 5 3 pills of doxycycline and broke up with allergic reaction and angioedema. She was having some facial swelling. He denies any chest pain. She had some difficulty swallowing. She received IV fluid, IV Tylenol, Benadryl, Pepcid and epinephrine. Solu-Medrol was also given in the ER. CT scan showed soft tissue swelling of the face and anterior neck along with mass and nodule in the right upper lobe of the lung. It was measuring 3.7 x 2.8 cm in the right lung. There was 12 mm nodule in the right upper lobe. 8 mm nodule in the left thyroid. She denies any significant history of smoking. She only smoked for 2 he has duration 40 years ago. She denies any history of malignancy. Review of Systems - Review of Systems All systems reviewed & are unremarkable except as noted in HPI and bel - Neurologic Reports system reviewed and no additional complaints, except as documented, Reports hearing normal [facility] Medical History: Medical History (Last Updated 10/15/21 @ 15:05 by Debbie Peres NP) Diabetes Hyperlipidemia Hypertension Hypothyroidism Surgical History: Surgical History (Last Updated 10/15/21 @ 15:05 by Debbie Peres NP) H/O: hysterectomy Family History: Family History (Last Reviewed 10/15/21 @ 15:05 by Debbie Peres NP) Mother Breast cancer Father Hx of CABG - Social History Social History: Social History (Last Updated 10/15/21 @ 15:09 by Debbie Peres NP) Gender Identity: Gender identity (if verbalized by the patient): Female Alcohol Use: Alcohol intake: never Substance Use: Substance use: never Others: Spiritual care concerns: No Living Arrangements: Living arrangements: with family Smoking Status: Smoking status: Current every day smoker Smoking Pack-years: Years smoked: 2 Exam - Vital Signs Vital Signs - 24 hr 10/15/21 20:15 10/15/21 20:30 10/15/21 20:20 Temperature Pulse Rate 61 58 L 62 Respiratory Rate 21 H 20 21 H Blood Pressure Pulse Oximetry 96 Oxygen Delivery Room Air 10/15/21 20:00 10/15/21 20:00 10/15/21 20:00 Temperature 36.6 C Pulse Rate 57 L 55 L Respiratory Rate 21 H Blood Pressure 130/68 Pulse Oximetry 95 Oxygen Delivery Room Air 10/15/21 22:00 10/15/21 22:00 10/16/21 00:00 Temperature Pulse Rate 64 64 Respiratory Rate 27 H Blood Pressure 125/63 Pulse Oximetry 92 Oxygen Delivery Room Air 10/16/21 00:00 10/16/21 00:00 10/16/21 02:00 Temperature 36.6 C Pulse Rate 60 60 67 Respiratory Rate 17 Blood Pressure 126/65 Pulse Oximetry 93 Oxygen Delivery 10/16/21 02:00 10/16/21 02:00 10/16/21 02:10 Temperature Pulse Rate 67 56 L 53 L Respiratory Rate 24 H 22 H 17 Blood Pressure 131/70 Pulse Oximetry 91 Oxygen Delivery 10/16/21 04:00 10/16/21 04:00 10/16/21 04:00 Temperature 36.3 C L Pulse Rate 71 71 Respiratory Rate 18 Blood Pressure 117/65 Pulse Oximetry 91 Oxygen Delivery Room Air 10/16/21 06:00 10/16/21 06:00 10/16/21 08:18 Temperature Pulse Rate 60 60 64 Respiratory Rate 22 H 18 Blood Pressure 123/53 L Pulse Oximetry 91 Oxygen Delivery 10/16/21 08:20 10/16/21 08:30 10/16/21 08:00 Temperature Pulse Rate 58 L 66 64 Respiratory Rate 16 15 Blood Pressure Pulse Oximetry 96 Oxygen Delivery Room Air 10/16/21 08:00 10/16/21 08:00 10/16/21 10:00 Temperature 36.9 C Pulse Rate 56 L 56 L Respiratory Rate 23 H Blood Pressure 152/79 H Pulse Oximetry 98 Oxygen Delivery Room Air 10/16/21 10:00
[2021-10-16 21:19] LABS: Glucose Point of Care 176 mg/dl (65-105)
[2021-10-17] VITALS (7 sets, daily range): BP systolic 137–147; BP diastolic 77–83; PULSE 68–91; RESP 16–20; TEMP 36.2–36.4; O2SAT 96–99
[2021-10-17] MEDS: methylPREDNISolone SOD SUCC 125 MG VIAL 60 MG IV PUSH ×2 (00:32→05:53)
[2021-10-17] MEDS: diphenhydrAMINE HCl INJ 50 MG/ML VIAL 25 MG IV PUSH ×3 (00:37→12:14)
[2021-10-17] MEDS: IPRATROPIUM BR 0.02% INH SOLN 0.5 MG/2.5 ML VIAL INHALATION ×3 (01:28→14:32)
[2021-10-17] MEDS: ALBUTEROL SULFATE NEB 2.5 MG/3 ML INH 5 MG INHALATION ×3 (01:28→14:32)
[2021-10-17] MEDS: LEVOTHYROXINE SODIUM INJ 100 MCG/5 ML VIAL 62.5 MCG IV PUSH (05:54)
[2021-10-17 07:39] LABS: Glucose Point of Care 170 mg/dl (65-105)
[2021-10-17] MEDS: amLODIPine BESYLATE 5 MG TABLET 10 MG PO (08:24)
[2021-10-17] MEDS: ENOXAPARIN 40 MG/0.4 ML SYRINGE SUB-Q (08:24)
[2021-10-17] MEDS: FUROSEMIDE INJ 40 MG/4 ML VIAL 20 MG IV PUSH (08:28)
[2021-10-17] MEDS: FAMOTIDINE 20 MG/2 ML VIAL IV PUSH (09:52)
[2021-10-17 11:37] LABS: Glucose Point of Care 238 mg/dl (65-105)
[2021-10-17] MEDS: INSULIN ASPART (*BKC) 100 UNITS/ML SUB-Q (12:13)
[2021-10-17] MEDS: methylPREDNISolone SOD SUCC 40 MG VIAL IV PUSH (13:37)
--- NOTE | 2021-10-17 14:29 | PM.DS ---
DS: Admitting Diagnosis Discharge Date 10/17/21 Admitting Diagnosis Angioedema DS: Discharge Diagnosis Discharge Diagnosis (1) Angioedema: Code(s): T78.3XXA - Angioneurotic edema, initial encounter Status: Acute Assessment and Plan: Resolving Angioedema could be multifactorial likely related to doxycycline as she started this medication 2 days prior to admission. She is also on lisinopril at home could be the culprit. Have placed both patient is on her list of allergies -patient presented with facial swelling including lip eyelids facial puffiness and tongue swelling. Significantly improved this morning -Patient did complain of some difficulty swelling but denies any difficulty with breathing, no complaints this morning -she was taking doxycycline for COPD exacerbation and cough -patient was given Solu-Medrol 125 mg IV x2 in the ER, patient also received epinephrine 0.3 mg IM x2 in the ER along with Pepcid and Benadryl -patient receiving 1 unit of FFP upon arrival to the ICU which was ordered from the ER -currently strict NPO -continue Solu-Medrol, Benadryl, Pepcid (2) Allergic reaction: Code(s): T78.40XA - Allergy, unspecified, initial encounter Status: Acute (3) Hypothyroidism: Code(s): E03.9 - Hypothyroidism, unspecified Status: Acute Assessment and Plan: On a patient on levothyroxine at home, started patient on IV levothyroxine (4) Diabetes: Code(s): E11.9 - Type 2 diabetes mellitus without complications Status: Acute Assessment and Plan: Patient with history of diabetes, on metformin at home, -will add sliding scale insulin for now -Accu-Cheks Q 4 hours as patient on steroids - (5) Hyperlipidemia: Code(s): E78.5 - Hyperlipidemia, unspecified Status: Acute Assessment and Plan: Patient on statin at home, will restart once able to take p.o. (6) Hypertension: Code(s): I10 - Essential (primary) hypertension Status: Acute Assessment and Plan: Patient is on amlodipine, furosemide, lisinopril/hydrochlorothiazide at home -patient is hypertensive, will restart amlodipine, furosemide (7) Pulmonary nodule: Code(s): R91.1 - Solitary pulmonary nodule Status: Acute (8) Pulmonary lesion of right side of chest: Code(s): J98.4 - Other disorders of lung Status: Acute Assessment and Plan: Patient has a 2.8 cm mass on the right upper lobe, incidental finding on chest x-ray -will have pulmonology and Oncology evaluate the patient Plan DVT prophylaxis: Lovenox SQ Stress ulcer prophylaxis: Famotidine Nutrition: Will start clear liquid diet Code Status: DNR/DNI DS: Summary Hospital Course Hospital Course: 85-year-old female patient who has been coughing and was placed on doxycycline for pneumonia.? The patient stated that she only took 3 of the doxycycline so far.? The patient also has a history of COPD.? The patient came to the emergency room for evaluation of facial swelling.? The patient has angioedema around her eyes and lips and her tongue is swollen as well.? The patient has had increased swelling overnight and has taken Benadryl without much improvement of her symptoms.? The patient has also been on lisinopril and has never had any angio edema prior.? Patient also has swelling to her neck which is making it difficult for her to swallow.? The patient was given IV fluids, Tylenol IV, Benadryl, Pepcid, epinephrine, albuterol, Atrovent, and Solu-Medrol in the emergency room.? The patient is able to open her eyes at this time and states that she is feeling much better.? She is currently in the ICU and is able to open her eyes.? She is able to talk and answer questions.? Her white counts 11.1.? Creatinine 1.10 BUN 23.? Glucose 153.? C reactive protein 17.4.? Chest x-ray showed mass in right upper lobe, concerning for cancer. Patient was admitted to the ICU for supportive care with Solu-Medrol, Pepcid
[2021-10-18 05:27] LABS: C1 Esterase Inhibitor >100 % (>=68)
== END 2021-10-17 15:40 | disposition home or self-care (01) | DRG 915 ==
LOC: ANHED 09:25 → ANHICU 12:05 → ANH3MEDSUR 10-16 14:31
PROVIDERS: Internal Medicine; Admitting Provider Internal Medicine; Emergency Provider Emergency Medicine; Visit Provider Student in an Organized Health Care Education/Training Program
DX: T78.3XXA Angioneurotic edema, initial encounter (principal); J18.9 Pneumonia, unspecified organism; J44.0 Chronic obstructive pulmonary disease with (acute) lower respiratory infection; T46.4X5A Adverse effect of angiotensin-converting-enzyme inhibitors, initial encounter; T36.4X5A Adverse effect of tetracyclines, initial encounter; T78.40XA Allergy, unspecified, initial encounter; E03.9 Hypothyroidism, unspecified; E11.9 Type 2 diabetes mellitus without complications; E78.5 Hyperlipidemia, unspecified; I10 Essential (primary) hypertension; R91.1 Solitary pulmonary nodule; E04.1 Nontoxic single thyroid nodule; Z66 Do not resuscitate; Z79.84 Long term (current) use of oral hypoglycemic drugs
CPT/HCPCS: 36415; 36430; 70360; 70490; 71045; 80048; 80053; 82948; 83605; 83735; 84100; 84145; 85025; 85610; 85730; 86140; 86160; 86900; 86901; 93306; 94640; 96372; 96374; 96375; 99285; A9270; J0171; J0456; J0696; J1200; J1650; J1815; J1940; J2920; J2930; J7040; P9017

== ENCOUNTER 2021-10-24 07:40 | Inpatient (IN) | payer MEDICARE, SELFPAY ==
[2021-10-24] VITALS (11 sets, daily range): BP systolic 119–155; BP diastolic 65–84; PULSE 60–69; RESP 16–20; TEMP 36.5–36.9; O2SAT 94–100
--- NOTE | ~2021-10-24 | XR_ITS ---
EXAMINATION: XR chest 2V DATE: 10/26/2021 10:40 INDICATION: Pneumonia. TECHNIQUE: Frontal and lateral views of the chest were obtained. COMPARISON: Chest 2 views 10/24/2021, chest CT 10/24/2021 FINDINGS: There are cavitary nodules in right upper lobe and right lower lobe. No pleural effusion or pneumothorax. Cardiomegaly is noted. IMPRESSION: 1. Stable cavitary nodules in right upper lobe and right lower lobe, most likely infection. Follow-up radiographs are recommended in one month to exclude malignancy. 2. Cardiomegaly. Reviewed, dictated and finalized at location A. IMPRESSION: 1. Stable cavitary nodules in right upper lobe and right lower lobe, most likel y infection. Follow-up radiographs are recommended in one month to exclude lissy gnancy. 2. Cardiomegaly.
--- NOTE | ~2021-10-24 | CT_ITS ---
EXAMINATION: CTA chest PE protocol DATE: 10/24/2021 10:09 INDICATION: Shortness of breath. TECHNIQUE: Computed tomography angiography (CTA) of the chest was performed with 100 mL Omnipaque-350 intravenous contrast timed to evaluate the pulmonary arteries. Coronal maximum intensity projection 3D-reconstructions were created by the technologist. Automated exposure control and iterative reconst ruction technique were employed. Exam dose: 615.34 mGy-cm total exam DLP. COMPARISON: None. FINDINGS: There is diagnostic contrast enhancement of the pulmonary arteries and no evidence of pulmo nary embolism. Thoracic aortic calcification but no thoracic aortic aneurysm or dissection is noted. Cardiomegaly. No pericardial or pleural effusion. Patchy groundglass density throughout both lungs including all lobes, which may be due to small airwa ys disease and/or atelectasis. Approximately 2 x 3 cm cavitary right upper lobe mass with adjacent infiltrate. Approximately 1.6 cm cavitary right lower lobe mass with adjacent infiltrate. Impression 1.8 x 2.3 cm right adrenal mass with attenuation of 7 Hounsfield units, likely an adrenal adenoma; differential diagnosis includes metastasis. Unremarkable left adrenal gland. No suspicious osteolytic or osteoblastic lesions. IMPRESSION: No evidence of pulmonary embolism Right upper and lower lobe cavitary masses with adjacent infiltrate. Differential diagnosis includes infection and primary or secondary malignancy Patchy groundglass density throughout both lungs suggesting small airways disease and/or atelectasis Cardiomegaly Right adrenal mass Reviewed, dictated and finalized at [facility]. Reviewed, dictated and finalized at location A. Impression 1.8 x 2.3 cm right adrenal mass with attenuation of 7 Hounsfield uni ts, likely an adrenal adenoma; differential diagnosis includes metastasis. Unre markable left adrenal gland. No suspicious osteolytic or osteoblastic lesions. IMPRESSION: No evidence of pulmonary embolism Right upper and lower lobe cavitary masses with adjacent infiltrate. Differenti al diagnosis includes infection and primary or secondary malignancy Patchy groundglass density throughout both lungs suggesting small airways disea se and/or atelectasis Cardiomegaly Right adrenal mass
--- NOTE | ~2021-10-24 | XR_ITS ---
XR chest 2V DATE: 10/24/2021 08:32 INDICATION: Shortness of breath TECHNIQUE: AP and lateral views COMPARISON: 10/16/2021 portable upright AP chest FINDINGS: Approximately 1.4 cm right upper lung and 1.5 cm right lower lung masses are suggested. CT thorax is recommended. Cardiac megaly. Aortic calcification. No pleural effusion or pulmonary vascular congestion or pneumothorax. Osteopenia. Mild dextroscoliosis and degenerative spurring of the thoracic and lumbar spine. IMPRESSION: Right lung masses are suggested. CT thorax is recommended Reviewed, dictated and finalized at location A.
--- NOTE | 2021-10-24 08:07 | ECG_ITS ---
Measurements Intervals [place] Rate: 57 P: AR: 0 QRS: -47 QRSD: 87 T: 159 QT: 434 QTc: 425 Interpretive Statements ATRIAL FIBRILLATION WITH SLOW VENTRICULAR RESPONSE LEFT AXIS DEVIATION LEFT VENTRICULAR HYPERTROPHY WITH ST-T CHANGE POOR R WAVE PROGRESSION, CONSIDER ANTERIOR INFARCT INFERIOR INFARCT, AGE INDETERMINATE T WAVE ABNORMALITY IN ANTEROLATERAL LEADS- CONSIDER ISCHEMIA ABNORMAL ECG NO PREVIOUS ECG AVAILABLE FOR COMPARISON Electronically Signed On 10-24-2021 14:46:03 CDT by Isreal Chavarria D.O.
[2021-10-24 08:25] LABS: Basophils Percent Auto 0.2 % (0.2-1.2); Eosinophils Absolute Auto 0.2 K/mm3 (0-0.3); Eosinophils Percent Auto 1.8 % (0-4.4); Hematocrit 44.4 % (37.0-47.0); Hemoglobin 14.4 g/dL (12.0-15.0); Immature Granulocyte Absolute 0.22 K/mm3 (0.00-0.031); Lymphocytes Absolute Auto 3.18 K/mm3 (0.9-3.2); Lymphocytes Percent Auto 29.2 % (18.3-44.2); Mean Corpuscular HGB Conc 32.4 g/dl (32-36); Mean Corpuscular Hemoglobin 27.5 pg (26-34); Mean Corpuscular Volume 84.7 fl (80-100); Mean Platelet Volume 9.7 fl (7.4-10.4); Monocytes Percent Auto 9.4 % (2.6-8.5); Neutrophils Absolute Auto 6.3 K/mm3 (1.3-6.7); Neutrophils Percent Auto 57.4 % (45.5-73.1); Platelet Count Result 468 k/mm3 (150-375); Red Blood Count 5.24 M/mm3 (4.2-5.4); Red Cell Distribution Width 13.9 % (11.5-14.5); White Blood Count 10.9 K/mm3 (4.5-10.0)
[2021-10-24 08:33] LABS: INR 1.1; Prothrombin Time 13.5 Seconds (11.1-14.7)
[2021-10-24 08:34] LABS: Alanine Aminotransferase 30 U/L (6-35); Albumin Level 4.3 g/dL (3.5-5.1); Alkaline Phosphatase 147 U/L (38-126); Anion Gap 17 mmol/L (8-16); Aspartate Amino Transferase 27 U/L (14-36); Bilirubin,Total 0.7 mg/dL (0.2-1.3); Blood Urea Nitrogen 17 mg/dL (7-17); Calcium 9.2 mg/dL (8.4-10.2); Carbon Dioxide 24 mmol/L (22-30); Chloride 97 mmol/L (98-107); Estimated CRCL calculation 44 ml/min; Estimated Glomerular Filt Rate 53; Glucose 116 mg/dL (65-110); Potassium 3.9 mmol/L (3.4-5.0); Sodium 138 mmol/L (137-145)
[2021-10-24 08:42] LABS: NT Pro B Type Natriuretic Pept 549 pg/mL (5-100)
--- NOTE | 2021-10-24 09:34 | ED.SOB ---
HPI - SOB/Dyspnea General Chief Complaint: Shortness of Breath/Dyspnea Stated Complaint: Shortness of Breath, Coughing Time Seen by Provider: 10/24/21 07:44 History of Present Illness HPI Narrative: Patient is an 85-year-old female who presents ER with shortness of breath. Patient recently hospitalized for angioedema that was related to either lisinopril or doxycycline. During her evaluation she was treated for pneumonia and diagnosed with new lung nodules are concerning for bronchogenic carcinoma. She has an outpatient follow-up with oncology scheduled so they can continue to work this up. She went home on prednisone. She has finished that. She continues to feel short of breath since discharge. No chest pain or pressure. reports lower extremities are slightly larger than typical for her. No fevers or chills or sweats. No new swelling to the lip or tongue or difficulty swallowing. Related Data Home Medications Medication Instructions Recorded Confirmed albuterol sulfate 90 mcg/actuation 2 puff inhalation Q4H PRN 10/15/21 10/24/21 aerosol inhaler Shortness Of Breath amlodipine 10 mg tablet 10 mg PO DAILY 10/15/21 10/24/21 atorvastatin 40 mg tablet 40 mg PO DAILY 10/15/21 10/24/21 ergocalciferol (vitamin D2) 1,250 See Rx Instructions .Route .COMPLEX 10/15/21 10/24/21 mcg (50,000 unit) capsule furosemide 20 mg tablet 20 mg PO DAILY 10/15/21 10/24/21 levothyroxine 125 mcg tablet 125 mcg PO DAILY 10/15/21 10/24/21 (Synthroid) metformin 500 mg tablet,extended 1,000 mg PO BID 10/15/21 10/24/21 release 24 hr Allergies Allergy/AdvReac Type Severity Reaction Status Date / Time doxycycline Allergy Severe Swelling Verified 10/24/21 12:15 of Lip/Tongue/Throat lisinopril Allergy Severe angioedema Verified 10/24/21 12:15 Penicillins Allergy Unknown RASH Verified 10/24/21 12:15 Review of Systems Review of Systems: All systems reviewed & are unremarkable except as noted in HPI and below Constitutional: Constitutional: Denies chills, Reports fatigue and Denies fever(s) ENT: Denies nasal congestion and Denies sore throat Cardiovascular: Cardiovascular: Denies chest pain, Denies rapid heart rate and Denies radiating jaw, neck or arm pain Respiratory: Respiratory: Reports cough and Reports dyspnea Gastrointestinal: Gastrointestinal: Denies abdominal pain, Denies nausea and Denies vomiting Genitourinary: Genitourinary: Denies nocturia and Denies dysuria PMFSH Past Medical History Medical History (Updated 10/24/21 @ 12:57 by Segun Oneal MD) Diabetes Hyperlipidemia Hypertension Hypothyroidism Surgical History Surgical History (Updated 10/16/21 @ 18:31 by Shlomo Lopez MD) H/O: hysterectomy Family History Family History Mother Breast cancer Father Hx of CABG Social History Social History (Updated 10/15/21 @ 15:09 by Debbie Peres NP) Social History: The patient tells me that she is and has 3 sons. Her 3 sons of the durable power civil litigation attorney for healthcare. She lives home alone by herself. 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 Code status DNR Years smoked: 3 Smoking status: Former smoker Alcohol intake: never Substance use: never Gender identity (if verbalized by the patient): Female Spiritual care concerns: No Exam Narrative: GENERAL: Well-appearing, well-nourished, and in no acute distress. HEAD: Normocephalic, atraumatic. EYES: PERRL and EOMI. ENT: Mucous membranes moist. Dry cracked lips. No angioedema of the tongue or lips. CHEST: Clear to auscultation. No respiratory distress. HEART: Regular rate and rhythm. Normal peripheral pulses. ABDOMEN: Soft, nontender, nondistended. EXTREMITIES: Normal range of motion. Nonpitting lower extremity edema. SKIN: Warm, dry, no rash. NEURO: Alert and oriented x3. PSYCH: Normal mood and affect. Course Course Emergency Course: [place]
--- NOTE | 2021-10-24 12:13 | ADMGEN ---
This patient, Lyudmila Stapleton, was admitted to Medical Room 247-. Patient/family oriented to hospital policies and general routines including ID bracelet, bed and alarms, visiting hours, pain management, procedures, bathroom and other care routines, personal items, smoking policy, room service/diet, and visiting hours. Information on how to activate the Rapid Response Team has been discussed. Patient/Family are encouraged to report perceived risks to care and to ask questions if they do not understand what they are told or what they should do.
--- NOTE | 2021-10-24 13:25 | PM.CNPUL ---
Assessment and Plan Assessment and plan (1) Hypersensitivity pneumonitis: Code(s): J67.9 - Hypersensitivity pneumonitis due to unspecified organic dust Status: Acute (2) Interstitial lung disease: Code(s): J84.9 - Interstitial pulmonary disease, unspecified Status: Acute Assessment and Plan: 85-year-old female presented with shortness of breath primarily on exertion for approximately 7-9 days. Patient was recently hospitalized and was treated for angioneurotic edema related to DALE inhibitor and also community acquired pneumonia for which she completed treatment with antibiotics. When hospitalized approximately 10 days ago she had signs suggestive of community-acquired pneumonia. Patient currently has a clear sputum. The chest CT shows interstitial lung disease with the classic head cheese sign suggestive of chronic hypersensitivity pneumonitis. As stated the patient has been exposed for many years to feather pillows. plan: the case was discussed with the hospitalist. We will proceed with IV steroids 60 mg Solu-Medrol twice daily, DVT prophylaxis, nebulized DuoNeb treatments. Also would obtain sputum for culture. I would not start the patient on antibiotic as yet as she has no signs suggestive of ongoing lower respiratory tract infection. I would start the patient on supplemental oxygen 2 liters/minute, get echocardiogram. History of Present Illness History of Present Illness Consult date: 10/24/21 Chief complaint: Hypersensitivity Pneumonitis Narrative: this 85-year-old female presented with shortness of breath on exertion for approximately 1 week. The patient is well known to me. She was hospitalized approximately 10 days ago with facial and tongue swelling related to angioneurotic edema. The patient was treated in the intensive care unit. I evaluated the patient during her last hospitalization because she was found to have an abnormal neck soft tissue CT. In particular she was found to have a right upper lobe consolidation and a mosaic pattern in the upper lung lobes bilaterally. The patient improved following treatment for angioneurotic edema and was discharged home directly from ICU. the angio neurotic edema was attributed to an Dale inhibitor she had been on for hypertension. In the days preceding hospitalization the patient had had a mild cough productive of dark yellow phlegm and also night sweats for approximately 5-10 days prior to last admission. This piece of information in conjunction with the x-ray findings suggested community-acquired pneumonia for which the patient completed treatment with levofloxacillin. She stated that her sputum from dark yellow has become clear. Over the last we,k the patient has had shortness of breath on exertion. She coughs up approximately 1 tbsp of clear phlegm. She has no other respiratory symptoms such as chest pain palpitations orthopnea hemoptysis night sweats fever chills or wheezing. She was using nebulized DuoNeb treatments she had from an old prescription with some improvement of shortness of breath. The patient was evaluated earlier today in the emergency room because of shortness of breath. Chest CT showed no evidence of pulmonary embolism. She had the previous upper lobe consolidation and an additional smaller consolidation in the right lower lobe. Chest CT showed interstitial lung disease with characteristic pattern with mosaic attenuation bilaterally which is known as head cheese sign. Upon questioning the patient has no occupational exposure that would explain this interstitial lung disease. She used to work at a bank for many years. At home the only exposure to organic agents has been the use of goose feather pillows for the last 10 years. She never had history of asthma. She was a light smoker for few years when she was young. Review of Systems Review of Systems: All system review is negative except as noted in HPI and below PMFSH [place]
--- NOTE | 2021-10-24 14:00 | PM.IMHP ---
H&P: HPI History of Present Illness Date/Time: 10/24/21 14:00 Chief Complaint: Shortness of breath and non-productive cough. Narrative: This is a very pleasant 85-year-old female with hypertension, hyperlipidemia, hypothyroidism, and prediabetes who presented to the emergency department from home for evaluation of shortness of breath and nonproductive cough for about a week. She is known to the hospitalist service with a recent admission approximately 10 days ago for angioedema of the face and tongue which was most likely due to lisinopril. However she had been taking doxycycline for a respiratory infection with mild cough productive of dark yellow phlegm and sweats and that has also been added to her allergy list. CT of the neck soft tissue was done at that time and showed an incidental right upper lobe consolidation for which Dr. Parada was consulted. He recommended continuing antibiotics (levofloxacin), which she did complete, and close outpatient follow-up. since discharge she has continued to have a cough with shortness of breath on exertion. She has been using nebulizers from middle prescription which seems to help her shortness of breath somewhat, but not for long. workup in the emergency department today include a CTA of the chest which was negative for pulmonary embolism. The previous upper lobe consolidation and an additional smaller right lower lobe consolidation was also noted. Dr. Parada remarks that her CT shows interstitial lung disease with characteristic pattern with mosaic attenuation bilaterally, suspicious for hypersensitivity pneumonitis. The only risk factor that he was able to elicit was that the patient uses goose down feathers pillows. She is being admitted for further treatment and evaluation and has been started on scheduled Solu-Medrol and DuoNebs. At this time we are holding on antibiotics, pending sputum culture. At the time my evaluation she is resting comfortably and reports that her cough has improved after her first dose of IV steroids. She denies fever and current sweats. She has not had any chest pain or pleuritic pain. She denies dysphagia and concerns for aspiration. No known sick contacts. She denies nausea, vomiting, and diarrhea. Review of Systems Review of Systems: Twelve systems were reviewed. Weight has remained stable. No history of malignancy. She smoked remotely many years ago. She has not noticed any lymphadenopathy. She has chronic lower extremity edema which is unchanged. She is quite active at home, lives alone, and does all of her own chores. Including cleaning out her gutters and mowing her [address] and half acre property with a riding lawnmower. She takes metformin for prediabetes and does not check her glucose at home. Except as documented, all other systems were reviewed and are negative. [facility] Past Medical History Medical History (Updated 10/24/21 @ 22:44 by Jia Martin PA-C) Angioedema (10/2021) Hyperlipidemia Hypertension Hypothyroidism Prediabetes Surgical History Surgical History (Updated 10/24/21 @ 22:38 by Jia Martin PA-C) History of hysterectomy Family History Family History Mother Breast cancer Father Hx of CABG Social History Social History (Updated 10/24/21 @ 22:39 by Jia Martin PA-C) Social History: The patient lives in her own home in [place]. She lives on 3 acres that she tends to herself. She is and has 3 grown sons. She is retired from the [employer] [place]. She smoked for a few years greater than 40 years ago. No alcohol or illicit substance abuse. She designates her sons as her surrogate decision makers. Code status: Do not resuscitate. Spiritual care concerns: No Meds Home Medications and Allergies Home Medications Medication Instructions Recorded Confirmed Type albuterol sulfate 90 mcg/actuation 2 puff inhalation Q4H PRN 10/15/21 10/24/21 History
[2021-10-24] MEDS: methylPREDNISolone SOD SUCC 125 MG VIAL 60 MG IV PUSH ×2 (15:08→21:12)
[2021-10-24] MEDS: IPRATROPIUM BR 0.02% INH SOLN 0.5 MG/2.5 ML VIAL INHALATION (20:26)
[2021-10-24] MEDS: ALBUTEROL SULFATE NEB 2.5 MG/3 ML INH INHALATION (20:26)
[2021-10-25] VITALS (9 sets, daily range): BP systolic 119–132; BP diastolic 56–67; PULSE 59–79; RESP 12–20; TEMP 36.1–36.2; O2SAT 96–99
[2021-10-25] MEDS: methylPREDNISolone SOD SUCC 125 MG VIAL 60 MG IV PUSH (06:49)
--- NOTE | 2021-10-25 09:18 | PM.PNPUL ---
Progress Note: A&P Assessment and Plan (1) Interstitial lung disease: Code(s): J84.9 - Interstitial pulmonary disease, unspecified Status: Acute Assessment and Plan: 85-year-old female presented with shortness of breath primarily on exertion for approximately 7-9 days.? Patient was recently hospitalized and was treated for angioneurotic edema related to MAGGIE inhibitor and also community acquired pneumonia for which she completed treatment with antibiotics.? When hospitalized approximately 10 days ago she had signs suggestive of community-acquired pneumonia. Patient currently has clear sputum.? The chest CT shows? interstitial lung disease with the classic head cheese sign suggestive of? chronic hypersensitivity pneumonitis.? As stated the patient has been exposed for many years to feather pillows. Over the last day, respiratory status has somewhat improved. She has less shortness of breath on exertion. Still coughing but not raising any phlegm. Has been afebrile. Physical exam is unremarkable. Apnea link showed significant oxyhemoglobin desaturation at night. plan: IV Solu-Medrol was decreased to 60 mg daily starting on 10/26. Added nebulized Pulmicort twice daily. Continue with nebulized short-acting bronchodilators. The patient will need to go on supplemental oxygen especially at night, 3 liters/minute. Repeat chest x-ray in a.m. [facility] home within the next 24- 48 hours. (2) Hypersensitivity pneumonitis: Code(s): J67.9 - Hypersensitivity pneumonitis due to unspecified organic dust Status: Acute (3) Pneumonia: Code(s): J18.9 - Pneumonia, unspecified organism Status: Acute (4) Abnormal chest CT: Code(s): R93.89 - Abnormal findings on diagnostic imaging of other specified body structures Status: Acute Subjective Date/time seen: 10/25/21 09:18 Patient doing better. Significantly less shortness of breath with ambulation. Continues to cough unable to cough up any phlegm. Underwent ApneaLink study last night. Review of Systems Review of Systems: All system review is negative except as noted in HPI and below Exam Narrative: GENERAL APPEARANCE: Well developed, well nourished, alert and cooperative, and appears to be in no acute distress While breathing room air SKIN: Inspection of the skin reveals no rashes, ulcerations or petechiae. HEENT: Sclerae anicteric and conjunctivae pink and moist. Extraocular movements were intact and pupils were equal, round, and reactive to light. The oral mucosa, hard and soft palate, tongue and posterior pharynx were normal. NECK: Supple. There was no thyroid enlargement, and no tenderness, or masses were felt. CHEST: Normal AP diameter and normal contour without any kyphoscoliosis. LUNGS: Auscultation of the lungs revealed normal breath sounds without any other adventitious sounds or rubs. CARDIAC: There was a regular rate and rhythm without any murmurs, gallops, rubs. ABDOMEN: Soft and nontender with normal bowel sounds. There was no organomegaly. LYMPH NODES: No lymphadenopathy was appreciated in the neck. EXTREMITIES: No cyanosis, clubbing; 1+ pedal edema NEUROLOGIC: Alert and oriented x 3. Normal affect. Objective Data Vital Signs Vital Signs: Vital Signs - 24 hr 10/24/21 10:58 10/24/21 11:32 10/24/21 11:54 Temperature Pulse Rate 62 60 60 Respiratory Rate 20 20 20 Blood Pressure 138/69 131/79 124/65 Pulse Oximetry 99 96 95 Oxygen Delivery 10/24/21 14:00 10/24/21 20:45 10/24/21 22:18 Temperature 36.6 C 36.9 C Pulse Rate 62 69 66 Respiratory Rate 18 18 16 Blood Pressure 137/74 155/74 H Pulse Oximetry 99 94 Oxygen Delivery 10/24/21 20:00 10/25/21 06:00 Temperature 36.2 C L Pulse Rate 59 L Respiratory Rate 18 Blood Pressure 119/67 Pulse Oximetry 94 96 Oxygen Delivery Room Air Intake/Output Intake/Output: Intake & Output 10/22/21 10/23/21 10/24/21 10/25/21 23:59 23:59 23:
[2021-10-25] MEDS: FUROSEMIDE 20 MG TABLET PO (09:20)
[2021-10-25] MEDS: amLODIPine BESYLATE 5 MG TABLET 10 MG PO (09:20)
[2021-10-25] MEDS: ATORVASTATIN 40 MG TABLET PO (09:20)
[2021-10-25] MEDS: ENOXAPARIN 40 MG/0.4 ML SYRINGE SUB-Q (09:21)
--- NOTE | 2021-10-25 09:40 | PHAR ---
HOME MED VERIFIED SYNTHROID 125MCG TABLET TAKE 1 DAILY
[2021-10-25] MEDS: ALBUTEROL SULFATE NEB 2.5 MG/0.5 ML INH (10:33)
[2021-10-25] MEDS: BUDESONIDE RESPULE NEB 0.5 MG/2 ML AMP INHALATION ×2 (10:33→20:34)
[2021-10-25] MEDS: IPRATROPIUM BR 0.02% INH SOLN 0.5 MG/2.5 ML VIAL INHALATION ×3 (10:34→20:34)
--- NOTE | 2021-10-25 11:33 | PM.IMPN ---
Progress Note: A&P Assessment and Plan (1) Hypersensitivity pneumonitis: Code(s): J67.9 - Hypersensitivity pneumonitis due to unspecified organic dust Status: Acute Assessment and Plan: doing much better on prednisone. Breathing much better. Likely discharge 1-2 days (2) Interstitial lung disease: Code(s): J84.9 - Interstitial pulmonary disease, unspecified Status: Acute (3) Prediabetes: Code(s): R73.03 - Prediabetes Status: Acute (4) Cardiomegaly: Code(s): I51.7 - Cardiomegaly Status: Acute (5) Abnormal chest CT: Code(s): R93.89 - Abnormal findings on diagnostic imaging of other specified body structures Status: Acute (6) Hypertension: Code(s): I10 - Essential (primary) hypertension Status: Acute Subjective Date/time seen: 10/25/21 11:33 breathing better Exam Narrative: General: Well-developed female sitting at side of the bed in no distress. Weight: 90.72 kilograms. BMI: 31.3. HEENT: PERRL, EOMI. Sclera anicteric. Oral mucosa moist. There are a few healing blisters on her lips from recent angioedema. Oropharynx is clear. No significant swelling noted. Neck: Supple. No lymphadenopathy. Respiratory: Respirations are nonlabored and she is speaking in full sentences. Occasional cough. Mildly decreased lung sounds in the right upper lobe with occasional wheezing with cough. Cardiovascular: Regular rate and rhythm with S1-S2. Gastrointestinal: Abdomen is soft, obese, nontender, and nondistended with positive bowel sounds. Skin: Warm and dry. Chronic skin changes of the lower legs bilaterally. Extremities: No cyanosis Or clubbing. Legs are large with 2+ pitting and nonpitting edema bilaterally. No palpable knots or cords. Negative Valerio sign bilaterally. Radial pulses palpable. Pedal pulses difficult to palpate given edema. Feet are well perfused. Neurological: Alert. Cranial nerves 2-12 are grossly intact. No gross focal deficits to casual conversation. Psychiatric: Pleasant and cooperative with normal mood and affect. Objective Data Vital Signs Vital Signs: Vital Signs - 24 hr 10/24/21 11:54 10/24/21 14:00 10/24/21 20:45 Temperature 97.8 F Pulse Rate 60 62 69 Respiratory Rate 20 18 18 Blood Pressure 124/65 137/74 Pulse Oximetry 95 99 Oxygen Delivery 10/24/21 22:18 10/24/21 20:00 10/25/21 06:00 Temperature 98.4 F 97.1 F L Pulse Rate 66 59 L Respiratory Rate 16 18 Blood Pressure 155/74 H 119/67 Pulse Oximetry 94 94 96 Oxygen Delivery Room Air 10/25/21 09:20 10/25/21 10:34 10/25/21 10:40 Temperature Pulse Rate 59 L 65 Respiratory Rate 12 12 Blood Pressure Pulse Oximetry Oxygen Delivery Room Air Intake/Output Intake/Output: Intake & Output 10/22/21 10/23/21 10/24/21 10/25/21 23:59 23:59 23:59 23:59 Intake Total 490 620 Output Total 350 600 Balance 140 20 Meds/Results Medications: Active Medications Generic Name Dose Route Start Last Admin Trade Name Freq PRN Reason Stop Dose Admin Acetaminophen 650 mg 10/24/21 11:20 Acetaminophen 325 Mg Tablet PO Q4H PRN Mild Pain (1-3) or Fever Albuterol 2.5 mg 10/24/21 14:00 10/25/21 07:55 Albuterol Sulfate Neb 2.5 Mg/3 Ml Inh INHALATION Not Given Q6HRT ELIZABETH Amlodipine Besylate 10 mg 10/25/21 09:00 10/25/21 09:20 Amlodipine Besylate 5 Mg Tablet PO 10 mg DAILY ELIZABETH Administration Atorvastatin Calcium 40 mg 10/25/21 09:00 10/25/21 09:20 Atorvastatin 40 Mg Tablet PO 40 mg DAILY ELIZABETH Administration Budesonide 0.5 mg 10/25/21 09:30 10/25/21 10:33 Budesonide Respule Neb 0.5 Mg/2 Ml Amp INHALATION 0.5 mg Q12HRT ELIZABETH Administration Enoxaparin Sodium 40 mg 10/25/21 09:00 10/25/21 09:21 Enoxaparin 40 Mg/0.4 Ml Syringe SUB-Q 40 mg DAILY ELIZABETH Administration Furosemide 20 mg 10/25/21 09:00 10/25/21 09:20 Furosemide 20 Mg Tablet PO 20 mg DATYON
[2021-10-25] MEDS: ALBUTEROL SULFATE NEB 2.5 MG/3 ML INH INHALATION ×2 (14:17→20:34)
[2021-10-25] MEDS: SENNA/DOCUSATE SODIUM TABLET 1 TAB PO (20:14)
[2021-10-26] VITALS (12 sets, daily range): BP systolic 127–143; BP diastolic 61–74; PULSE 66–96; RESP 14–20; TEMP 36.3–36.7; O2SAT 97–99
[2021-10-26] MEDS: ALBUTEROL SULFATE NEB 2.5 MG/3 ML INH INHALATION ×3 (02:10→14:59)
[2021-10-26] MEDS: IPRATROPIUM BR 0.02% INH SOLN 0.5 MG/2.5 ML VIAL INHALATION ×3 (02:10→14:59)
[2021-10-26] MEDS: BUDESONIDE RESPULE NEB 0.5 MG/2 ML AMP INHALATION (08:18)
[2021-10-26] MEDS: ATORVASTATIN 40 MG TABLET PO (09:22)
[2021-10-26] MEDS: methylPREDNISolone SOD SUCC 125 MG VIAL 60 MG IV PUSH (09:23)
[2021-10-26] MEDS: FUROSEMIDE 20 MG TABLET PO (09:23)
[2021-10-26] MEDS: amLODIPine BESYLATE 5 MG TABLET 10 MG PO (09:23)
[2021-10-26] MEDS: ENOXAPARIN 40 MG/0.4 ML SYRINGE SUB-Q (09:23)
--- NOTE | 2021-10-26 12:24 | PM.DS ---
DS: Admitting Diagnosis Discharge Date October 26, 2021 Admitting Diagnosis hypersensitivity pneumonitis DS: Discharge Diagnosis Discharge Diagnosis (1) Hypersensitivity pneumonitis: Code(s): J67.9 - Hypersensitivity pneumonitis due to unspecified organic dust Status: Acute Assessment and Plan: discharged on prednisone. Also discharged on albuterol home oxygen evaluation follow-up pulmonary 3 weeks (2) Interstitial lung disease: Code(s): J84.9 - Interstitial pulmonary disease, unspecified Status: Acute (3) Prediabetes: Code(s): R73.03 - Prediabetes Status: Acute (4) Cardiomegaly: Code(s): I51.7 - Cardiomegaly Status: Acute (5) Abnormal chest CT: Code(s): R93.89 - Abnormal findings on diagnostic imaging of other specified body structures Status: Acute (6) Hypertension: Code(s): I10 - Essential (primary) hypertension Status: Acute DS: Summary Hospital Course Hospital Course: patient is an 85-year-old female who presents to the ER with shortness of breath. She reports that she was recently hospitalized for angioedema and was given doxycycline. Afer taking doxycycline she developed a rash around her lips and also that is when she felt short of breath. Patient was evaluated here found have a cavitary lesion on CT scan which will he be followed up with by pulmonology. Patient is fully aware and will follow up with pulmonology. Pulmonology felt the patient likely had hypersensitivity pneumonitis. Patient will be discharged on prednisone, albuterol. She will also be evaluated for home oxygen and pulmonary once a patient of 2L of oxygen at home at That night while sleeping. I spoke with the case management also spoke with respiratory therapist since we set up prior to discharge Time Spent with Patient Time attestation: Total time spent providing and/or coordinating discharge services: DS: Data Data Completed and Pending Labs on day of discharge: Preliminary micro results at discharge 10/24/21 10:51 Blood Culture - Preliminary Blood 10/24/21 10:51 Blood Culture - Preliminary Blood Discharge Plan Discharge Attending physician on discharge: Buzz Montez Consulting providers: Toya Mcgraw Discharging Clinician: Buzz Montez Patient Disposition: Home, Self-Care Activity: no preference Diet: as tolerated Patient Instructions: Antibiotic Form Stand Alone Forms: General Discharge Information Follow-up/Referrals: Toya Mcgraw DO [Physician] - Discharge Medications: New prednisone 20 mg tablet 40 mg PO DAILY 5 Days Qty: 10 0RF prednisone 5 mg tablet 35 mg PO DAILY 5 Days Qty: 35 0RF Rx Instructions: start after completing 40 mg daily prednisone 10 mg tablet 30 mg PO DAILY 20 Days Qty: 60 0RF Rx Instructions: start after completing 35mg daily - take this until you follow up with rn progressive care unit Continued atorvastatin 40 mg tablet 40 mg PO DAILY amlodipine 10 mg tablet 10 mg PO DAILY levothyroxine [Synthroid] 125 mcg tablet 125 mcg PO DAILY furosemide 20 mg tablet 20 mg PO DAILY ergocalciferol (vitamin D2) 1,250 mcg (50,000 unit) capsule See Rx Instructions .ROUTE .COMPLEX Rx Instructions: 50,000 unit orally q14 days albuterol sulfate 90 mcg/actuation HFA aerosol inhaler 2 puff INHALATION Q4H PRN (Reason: Shortness Of Breath) metformin 500 mg tablet extended release 24 hr 1,000 mg PO BID Date of admission: 10/25/21 09:53 Primary Care Provider: PHYSICIAN NOT ON STAFF,NONSTAFF Admitting Provider: Fabian Mcclain Attending physician on admission: Fabian Mcclain Condition: Stable
--- NOTE | 2021-10-26 13:08 | PM.PNPUL ---
Progress Note: A&P Assessment and Plan (1) Interstitial lung disease: Code(s): J84.9 - Interstitial pulmonary disease, unspecified Status: Acute Assessment and Plan: Assessment and Plan (1) Interstitial lung disease: ?Code(s): J84.9 - Interstitial pulmonary disease, unspecified ?Status:?Acute ?Assessment and Plan: 85-year-old female presented with shortness of breath primarily on exertion for approximately 7-9 days.? Patient was recently hospitalized and was treated for angioneurotic edema related to DALE inhibitor and also community acquired pneumonia for which she completed treatment with antibiotics.? When hospitalized approximately 10 days ago she had signs suggestive of community-acquired pneumonia. Patient currently has? clear sputum.? The chest CT shows? interstitial lung disease with the classic head cheese sign suggestive of? chronic hypersensitivity pneumonitis.? As stated the patient has been exposed for many years to feather pillows. 10/25 ? Over the last day,? respiratory status has somewhat improved.? She has less shortness of breath on exertion.? Still coughing but not raising any phlegm.? Has been afebrile.? Physical exam is unremarkable.? Apnea link showed significant oxyhemoglobin desaturation at night. plan: ? IV Solu-Medrol was decreased to 60 mg daily starting on 10/26. Added? nebulized Pulmicort twice daily.? Continue with nebulized short-acting bronchodilators.? The patient will need to go on supplemental oxygen especially at night, ? 3 liters/minute.? Repeat chest x-ray in a[facility] home within the next 24- 48 hours. 10/26 Today the patient tells me she has improved and is 100% better than when she arrived. She is breathing normally. Room air saturations are 98%. Chest x-ray shows stable right upper lobe and right lower lobe infiltrates. I have instructed her to remove the feather pillows from her house. From a pulmonary perspective patient is ready to be discharged home on these Pulmonary medications: Prednisone 40 mg p.o. q.day x5 days then prednisone 35 mg p.o. q.day x5 days then prednisone 30 mg p.o. q.day. Albuterol 2 puffs q.4 hours p.r.n. shortness of breath or wheezing. 2 L nasal cannula oxygen at night. Oxygen at rest and with ambulation per home O2 assessment which I have ordered. Follow-up in Pulmonary Clinic3-4 weeks The patient will need outpatient Imaging to follow up her right upper lobe and right lower lobe infiltrates, PFTs and a split night sleep study. discussed with Dr. Montez Subjective Date/time seen: 10/26/21 13:08 Interval history: 10/24/2021 Consult date: 10/24/21 Chief complaint: Hypersensitivity Pneumonitis Narrative: ?this 85-year-old female presented with? shortness of breath on exertion for approximately 1 week.? The patient is well known to me.? She was hospitalized approximately 10 days ago with facial and tongue swelling related to angioneurotic edema.? The patient was treated in the intensive care unit.? I evaluated the patient during her last hospitalization because she was found to have an abnormal neck soft tissue CT.? In particular she was found to have a right upper lobe consolidation and a mosaic pattern in the upper lung lobes bilaterally.? The patient improved following treatment for angioneurotic edema and was discharged home directly from ICU. the angio neurotic edema was attributed to an Dale inhibitor she had been on for hypertension.? In the days preceding hospitalization the patient had had a mild cough productive of dark yellow phlegm and also night sweats for approximately 5-10 days prior to last admission.? This piece of information in conjunction with the x-ray findings suggested community-acquired pneumonia for which the patient completed treatment with levofloxacillin.? She stated that her sputum from dark yellow has become clear.? Over the last wee,k the patient has had shortness of breath on exertion.? She coughs
--- NOTE | 2021-10-26 16:03 | PCRCNOTE ---
HOME O2 FOR NOCTURNAL AT 2 L IS SET UP WITH [facility] [employer], PT WILL RECEIVE A CALL FROM [employer] [facility] FOR ARRANGING HOME O2 SET UP
--- NOTE | 2021-10-26 16:06 | PCRCNOTE ---
Home O2 eval completed. Patient does not require Home O2 daytime or with activity. RN notified.
== END 2021-10-26 17:55 | disposition home or self-care (01) | DRG 198 ==
LOC: ANHED 08:21 → ANH2MED 11:44
PROVIDERS: Admitting Provider Internal Medicine; Emergency Provider Emergency Medicine; Visit Provider Chiropractor
DX: J67.9 Hypersensitivity pneumonitis due to unspecified organic dust (principal); T36.4X5A Adverse effect of tetracyclines, initial encounter; T78.3XXA Angioneurotic edema, initial encounter; R91.8 Other nonspecific abnormal finding of lung field; J84.9 Interstitial pulmonary disease, unspecified; E78.5 Hyperlipidemia, unspecified; E03.9 Hypothyroidism, unspecified; I11.9 Hypertensive heart disease without heart failure; R73.03 Prediabetes; Z66 Do not resuscitate; Z87.891 Personal history of nicotine dependence; Z79.84 Long term (current) use of oral hypoglycemic drugs; Z90.710 Acquired absence of both cervix and uterus; Z88.0 Allergy status to penicillin; Z87.01 Personal history of pneumonia (recurrent)
CPT/HCPCS: 36415; 71046; 71275; 80053; 83880; 85025; 85610; 85730; 87040; 93005; 94618; 94640; 96372; 96374; 96376; 99285; A9270; G0378; J1650; J2930; Q9967

== ENCOUNTER 2021-11-06 11:08 | Outpatient (CLI) | payer MEDICARE, SELFPAY ==
--- NOTE | ~2021-11-06 | XR_ITS ---
XR chest 2V 11/06/2021 11:31 Indication: Hypersensitivity pneumonitis. Shortness of breath with exertion. Procedure: PA and lateral views of the chest Comparison: Comparison to multiple prior studies sequentially, with oldest reviewed study dated 02/2021. Findings: Near-complete resolution of right upper and lower lobe pneumonia. Mild cardiomegaly. There is atherosclerosis and ectasia of the aorta. No pleural effusion, edema or pneumothorax. Impression: 1: Near-complete resolution of right upper and lower lobe pneumonia. Reviewed, dictated and finalized at location A. Impression: 1: Near-complete resolution of right upper and lower lobe pneumonia.
== END 2021-11-06 11:09 | disposition home or self-care (01) ==
PROVIDERS: Visit Provider Internal Medicine Pulmonary Disease
DX: J67.9 Hypersensitivity pneumonitis due to unspecified organic dust (principal); J84.9 Interstitial pulmonary disease, unspecified
CPT/HCPCS: 71046

== ENCOUNTER 2021-11-25 09:12 | Outpatient (CLI) | payer MEDICARE, SELFPAY ==
--- NOTE | ~2021-11-25 | CT_ITS ---
EXAMINATION: CT diagnostic chest w con DATE: 11/25/2021 09:49 INDICATION: Right lung mass TECHNIQUE: Transaxial computed tomographic images of the chest were obtained after the administration of 75 cc of Omnipaque 350 intravenous contrast. The dose-length product (DLP) was 373.07 mGy-cm. Ite rative reconstruction was used. COMPARISON: 10/24/2021 FINDINGS: There has been interval improvement in the previously described masslike opacity of the rig ht upper lobe as well as the right upper and lower lobe nodules. No persistent suspicious mass or nod ule is identified. There is a 3 mm nodule in the right lower lobe on image 47. No pleural effusion or pneumothorax. Cardiomegaly is noted. There are no pathologically enlarged thoracic lymph nodes. Ther e is a 2.4 cm adenoma of the right adrenal gland. There is moderate thoracic spondylosis. IMPRESSION: 1. Near complete resolution of the previously described right upper lobe mass and right lung nodules, most consistent with resolving infection/inflammation. 2. Right adrenal adenoma. 3. Cardiomegaly. Reviewed, dictated and finalized at location A. IMPRESSION: 1. Near complete resolution of the previously described right upper lobe mass a nd right lung nodules, most consistent with resolving infection/inflammation. 2. Right adrenal adenoma. 3. Cardiomegaly.
[2021-11-25 09:37] LABS: Estimated Glomerular Filt Rate 53
--- NOTE | 2021-12-07 09:31 | SIXMIN_ITS ---
This report was moved to the correct visit on 01/04/22. Original report was signed by Hannah Wall MD on 12/07/21930. Six Minute Walk Procedure Procedure Performed Pulmonary Stress Test (6 min walk) Six Minute Walk Six Minute Walk: ? DOS:? 11/25/2021 ? REQUESTING:? Paige Vazquez PA-C ? REASON FOR TESTING:? Shortness of breath SIX MINUTE WALK This test was conducted per ATS standards. Study was conducted with the patient breathing room air. Initial saturation was 100% pulse was 50. The patient used a walker to ambulate. Saturation varied very little between 98 and 100%. Pulse increased to 91 during the walk. During recovery pulse was 87. Total distance walked was 800 ft, 243.8 m. IMPRESSION: Patient does not require supplemental oxygen with exertion. Distance walked is adequate for age. This dictation may have been done utilizing a voice recognition system. Attempts have been made to correct errors. However, there may be uncorrected grammatical, spelling, and recognition errors present. Report Initialized date/time: Hannah Wall MD 12/07/21930 Electronically signed by: Hannah Wall MD 12/07/21930 [facility]
--- NOTE | 2021-12-07 09:32 | WPDPFTINT ---
PFT Procedure Performed PFT Procedure Performed Spirometry with Pre/Post Bronchodilator Diffusing Cap (DLCO) PFT Interpretation DOS: 11/25/2021 REQUESTING: Dr. Juan Paraad REASON FOR TESTING: Cough, shortness of breath PULMONARY FUNCTION TESTS Spirometry: Pre bronchodilator FEV1 1.89 L, 92% predicted, normal. Pre bronchodilator FVC is 2.25 L, 83% predicted. FEV1/FVC is 84% normal. After bronchodilator there is a 7% increase in FEV1, 2.03 L. there is a 3% increase in the FVC, 2.31 L. These are not statistically significant. Lung volumes: The patient was unable to complete lung volumes after coaching and 2 attempts. Diffusion: DLCO 18.1, 89% predicted, normal. DLCO/VA 4.62, 117% predicted, normal. Flow volume loop: Normal. IMPRESSION: Normal spirometry without response to bronchodilator. Normal diffusion capacity. Patient was unable to perform lung volumes. Hannah Wall MD
== END 2021-11-25 09:13 | disposition home or self-care (01) ==
LOC: ANHIMG 09:19
PROVIDERS: Referring Provider Internal Medicine Hematology & Oncology; Visit Provider Internal Medicine Pulmonary Disease
DX: R91.8 Other nonspecific abnormal finding of lung field (principal); I51.7 Cardiomegaly; D35.01 Benign neoplasm of right adrenal gland
CPT/HCPCS: 71260; 94060; 94618; 94729; Q9967

== ENCOUNTER 2022-06-14 08:32 | Outpatient (CLI) | payer MEDICARE, SELFPAY ==
--- NOTE | ~2022-06-14 | CT_ITS ---
Clinical Indication: Right lung mass CT Scan of the Chest with Contrast: Technique: Contiguous sections were acquired throughout the chest after intravenous administration of 75 cc of Omnipaque 350. Dose reduction technique was used on this scan by utilizing automated exposu re control and iterative reconstruction technique. The dose-length product (DLP) was 216.73 mGy-cm. COMPARISON: 11/25/2021 Findings: There is no evidence of any significant mediastinal, hilar or axillary lymphadenopathy. There is no f illing defect in the pulmonary arterial tree to suggest pulmonary embolus. There is no evidence of ao rtic dissection or aneurysm. There is no evidence of pleural or pericardial effusion. Very subtle mosaic attenuation pattern of the lungs noted. No pulmonary nodule or mass evident. Images through the upper abdomen reveal stable low-density right adrenal nodule, compatible with gin marciano. Impression: Very subtle mosaic attenuation pattern of the lungs. Correlate for asthma, bronchiolitis, chronic int erstitial disease, hypersensitivity pneumonitis. No pulmonary nodule or mass evident. Stable right adrenal adenoma. Reviewed, dictated and finalized at location . Impression: Very subtle mosaic attenuation pattern of the lungs. Correlate for asthma, bron chiolitis, chronic interstitial disease, hypersensitivity pneumonitis. No pulmonary nodule or mass evident. Stable right adrenal adenoma.
[2022-06-14 09:00] LABS: Estimated Glomerular Filt Rate 43
== END 2022-06-14 08:33 | disposition home or self-care (01) ==
PROVIDERS: PCP Internal Medicine Pulmonary Disease; Visit Provider Internal Medicine Hematology & Oncology
DX: R91.8 Other nonspecific abnormal finding of lung field (principal); D35.01 Benign neoplasm of right adrenal gland
CPT/HCPCS: 71260; Q9967

== ENCOUNTER 2024-10-23 13:35 | Outpatient (CLI) | payer MEDICARE, SELFPAY ==
--- OUTSIDE RECORDS SUMMARY | 2009-10-29 08:00 | XMS_ITS | Continuity of Care Document ---
Author Organization [facility] Address [address] [place] [address] Dr Ortega [address] [place] [phone] Phone Care Team Providers Care Installation And Service Technician Name Role Phone Nadirrandy Cristian Unavailable Unavailable Procedures Procedure Date Eye Exam & Treatment Refraction Vision Svcs Frames Purchases Vision Svcs Frames Purchases Frames Deluxe TF Polycarb Sphcyl [place] To +/-4d .12-2d Progressive Lens, Plastic Post-op [...] Vision Svcs Frames Purchases TF Polycarb Sphcyl [place] To +/-4d .12-2d Anti-reflective Coating Tax - Medical Advance Directives Directive Yes / No Effective Date File Name No Information Encounters Encounter Description Practice Location Reason(s) For Visit Diagnoses Date Provider Providers Copied on Encounter [facility], [address], [place], [place], [address], [place] tel:[phone] [facility] No Information Sep 5-201 0 Enoc Foster. [address] , [address], [place], [place], [facility], . tel:[phone] [facility], [address] [place] [address] [address], [place], [place], [address], [place] tel:[phone] [facility] No Information June-2 8-201 0 [facility] . [address] [facility], [address], [place], [place], [address], . tel:[phone] Consulting Provider: Nina Fregoso, [address] [place] [address], [address]. tel:[phone] [facility], [address] [place] [address] [address], [place], [place], [address], [place] tel:[phone] [facility] No Information Feb-0 3-201 0 [facility] . [address] [facility], [address], [place], [place], [address], [place]. tel:[phone] Referring Provider: Cristian Mclean, [facility], [place], [facility]. tel:[phone] [facility], [address] [place] [address] [address], [place], [place], [address], [place] tel:[phone] [facility] No Information Dec-0 3-200 9 Brink OD Macho. [address] , [address], [place], [address], [place]. tel:[phone] [facility], [address], [place], [place], [address], [place] tel:[phone] [facility] No Information 8-200 9 Enoc Foster. [address] , [address], [place], [address], [place]. tel:[phone] [facility], [address], [place], [place], [address], [place] tel:[phone] [facility] No Information Nov-1 7-200 9 Enoc Foster. [address] [facility] , [address], [place], [facility], [place]. tel:[phone] [facility], [address], [place], [place], [address], [place] tel:[phone] [facility] No Information Oct-0 6-200 9 Enoc Foster. [address] [place], [place] [address] , [address], [place], [facility], [place]. tel:[phone] Referring Provider: Cristian Mclean, [address] [place], [place] [address], [place], [facility]. tel:[phone] [facility], [address], [place], [place], [address], [place] tel:[phone] [facility] No Information Sep-2 3-200 9 Enoc Foster. [address] [place], [place] [address] , [address], [place], [facility], [place]. tel:[phone] Referring Provider: Cristian Mclean, [address] [place], [place] [address], [place], [facility]. tel:[phone] [facility], [address], [place], [place], [address], [place] tel:[phone] [facility] No Information Sep-0 9-200 9 Enoc Foster. [address] [place], [place] [address] , [address], [place], [facility], [place]. tel:[phone] [facility], [address], [place], [place], [address], [place] tel:[phone] [facility] No Information 0 8200 9 Doisy Edguido. [address] , [address], [place], [facility], [place]. tel:[phone] [facility], [address], [place], [place], [address], [place] tel:[phone] [facility] No Information 8200 9 Doisy Edguido. [address], [address], [place], [facility], [place]. tel:[phone] Referring Provider: Cristian Mclean, [address], [place], [facility]. tel:[phone] Office/outpat ient Visit, [facility], [address] [place] [address] [address], [place], [place], [address], [place] tel:[phone] [facility] No Information [address] [facility] [address], [address], [place], [address], [place]. tel:[phone] Referring Provider: Cristian Mclean, [address], [place], [facility]. tel:[phone] Office/outpat ient Visit, [facility], [address] [place] [address] [address], [place], [place], [address], [place] tel:[phone] [facility] No Information [address] [facility] [address], [address], [place], [address], [place]. tel:[phone] [facility], [address], [place], [place], [address], [place] tel:[phone] [facility] No Information 3200 8 Doisy Edguido. [address] , [address], [place], [address], [place]. tel:[phone] [facility], [address], [place], [place], [address], [place] tel:[phone] [facility] No Information May-0 3-200 7 [facility] . [address] [facility], [address], [place], [place], [address], [place]. tel:[phone] Referring Provider: Cristian Mclean, [address], [place], [address]. tel:[phone] mcmanus Provider: Nina Fregoso, [address] [facility], [place], [address]. tel:[phone] Family History Family Member Type Diagnosis Age At Onset No Information Payers Payer name Insurance type Covered green party ID Authoriza tion(s) Medicare [facility] [id number] [place] Commercial [id number] Social History Type Description Quantity Date Captured [...]
--- OUTSIDE RECORDS SUMMARY | 2024-10-23 15:06 | XMS_ITS | Clinical Summary ---
Author Organization [facility] Address [address] [place] [id number] Phone Care Team Providers Care Director Of Product Management Name Role Phone Martha Parker MD Primary Care Provider [phone] Allergies Active Allergy Reactions Criticality Noted Date Comments Doxycycline Hcl Swelling Low 10/28/2021 Lisinopril Angioedema High 10/28/2021 Penicillins Rash Low 04/21/2012 Medications verapamil ER 24 hour (VERELAN) 240 mg Oral capsule Take 240 mg by mouth daily. Active levothyroxine 75 mcg tablet Take 75 mcg by mouth daily postulant. Active atorvastatin (LIPITOR) 40 mg Oral tablet Take 40 mg by mouth Daily LATE. Active LOSARTAN POTASSIUM (LOSARTAN ORAL) Take by mouth. Active aspirin (MENA) 81 mg Oral Tab Take by mouth. Active metFORMIN (GLUCOPHAGE) 500 mg tablet Take 500 mg by mouth 2 times daily with meals. Active multivitamin (DAILY-PHOENIX) tablet Take 1 Tablet by mouth daily. Active cyanocobalamin 1,000 mcg Tablet Take 1,000 mcg by mouth daily. Active cholecalciferol, Vitamin D3, (VITAMIN D3) 1,000 unit Capsule Take by mouth daily. Active Active Problems Problem Noted Date Diagnosed Date Abnormal CT of the abdomen 02/2015 [facility] 02/2015 Overview (03/17/2015): Done for RLQ pain. Findings included hepatomegaly (24 cm spam) without fat, meron dil or space occupying lesion, 3 cystic vs solid lesions in head of pancreas and 2.1 cm left adrenal nodule. Incidental retained stool and surgical absence of GB. Concomitant CBC and LFT normal. Personal history of colonic polyps 03/16/2015 Overview (03/16/2015): 1.5 cm pedunculated right colon adenoma removed 05/2012 Adenoma also removed in 2008. Repeat advised 05/2015 Hypertension 03/16/2015 Hypothyroidism 03/16/2015 Hyperlipidemia 03/16/2015 Family History Medical History Relation Name Comments Breast Cancer Maternal Aunt Breast Cancer Mother Colon Cancer Other 1 Ovarian Cancer Other 2 Cancer Sister Relation Name Status Comments Brother Father Maternal Aunt Mother Other 1 Other 2 Sister Social History Tobacco Use Types Packs/Day Years Used Date Smoking Tobacco: Never Smokeless Tobacco: Never Tobacco Cessation:Counseling Given: Not Answered Alcohol Use Standard Drinks/Week Comments No 0 (1 standard drink = 0.6 oz pur e alcohol) Comments No Sex and Gender Information Value Date Recorded Sex Assigned at Not on file Legal 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 Gender Identity Not on file Sexual Orientation Not on file Last Filed Vital Signs Vital Sign Reading Time Taken Comments Blood Pressure 154/60 06/21/2022 1:02 PM CDT Pulse 96 06/21/2022 1:00 PM CDT Temperature 36.1 C (97 F) 06/21/2022 1:00 PM CDT Respiratory Rate 10 06/21/2022 1:00 PM CDT Oxygen Saturation 99% 06/21/2022 1:00 PM CDT Inhaled Oxygen Concentration - - Weight 88.9 kg (196 lb) 06/21/2022 1:00 PM CDT Height 167.6 cm (5' 6) 12/15/2021 12:55 PM CDT Body Mass Index 31.64 12/15/2021 12:55 PM CDT Plan of Treatment Health Maintenance Due Date Last Done Comments DTAP/TDAP/TD VACCINES (1 - Tdap) 1954 PNEUMOCOCCAL VACCINE 50+ YEA RS (1 of 1 - PCV) 12/15/1987 ZOSTER VACCINE (1 of 2) 12/15/1987 OSTEOPOROSIS SCREENING 2002 RSV VACCINE (60+ or ) (1 - 1-dose 75+ series) 2012 COLORECTAL SCREENING 09/01/2020 09/02/2015, 06/07/2012, 06/07/2012, Additional history exists INFLUENZA VACCINE (#1) 2024 Procedures Procedure Name Priority Date/Time Associated Diagnosis Comments ENDOSCOPY, COLON, SCREENING Routine 06/07/2012 from Last 3 Months or Most Recently Relevant to Health Maintenance Results * (ABNORMAL) ENDOSCOPY, COLON, SCREENING (06/07/2012) Hugo Amezcua MD GI PROCEDURE ORDERABLES Edited [facility] from Last 3 Months or Most Recently Relevant to Health Maintenance Insurance MEDICARE PART A AND B [employer] PPO MEDICARE PART A AND B Anaergia BLUE ACCESS/TRUE BLUE PPO Advance Directives For more information, please contact: [phone] * Full Code (Latest Code Status on File) Date Activated Date Inactivated Comments 09/02/2015 6:53 AM 09/02/2015 10:44 AM Care Teams Director Of Product Management Relationship Specialty Start Date End Date Martha Parker MD [address] [place] [address] [address] [place] [address] PCP - General Internal Medicine 04/18/12
[2024-10-23 18:29] LABS: Hematocrit 42.8 % (37.0-47.0); Hemoglobin 13.4 g/dL (12.0-15.0); Mean Corpuscular HGB Conc 31.3 g/dl (32-36); Mean Corpuscular Hemoglobin 28.0 pg (26-34); Mean Corpuscular Volume 89.5 fl (80-100); Platelet Count Result 318 k/mm3 (150-375); Red Blood Count 4.78 M/mm3 (4.2-5.4); White Blood Count 7.2 K/mm3 (4.5-10.0)
[2024-10-23 18:48] LABS: Alanine Aminotransferase 17 U/L (6-35); Albumin Level 4.6 g/dL (3.5-5.1); Alkaline Phosphatase 129 U/L (38-126); Anion Gap 9 mmol/L (4-12); Aspartate Amino Transferase 38 U/L (14-36); Bilirubin,Total 0.7 mg/dL (0.2-1.3); Blood Urea Nitrogen 16 mg/dL (7-17); Calcium 9.7 mg/dL (8.4-10.2); Carbon Dioxide 29 mmol/L (22-30); Chloride 102 mmol/L (98-107); Cholesterol 194 mg/dL (0-200); Estimated Glomerular Filt Rate 54; Glucose 78 mg/dL (65-110); HDL Direct 75 mg/dL; Potassium 4.0 mmol/L (3.4-5.0); Sodium 140 mmol/L (137-145); Total Protein 8.1 g/dL (6.3-8.2); Triglycerides 115 mg/dL (<150)
[2024-10-23 19:29] LABS: Thyroid Stimulating Hormone 1.360 uIU/mL (0.465-4.680)
[2024-10-23 19:39] LABS: Free T4 Free Thyroxine 1.56 ng/dL (0.78-2.19)
[2024-10-23 19:54] LABS: Hemoglobin A1C 5.9 % (<5.7)
[2024-10-23 20:27] LABS: MALB Creatinine Ratio 418.5 mg/g (0-30)
== END 2024-10-23 13:36 | disposition home or self-care (01) ==
LOC: ANHGOSHLAB 13:37
PROVIDERS: PCP Family Medicine; Visit Provider Nurse Practitioner
DX: E78.5 Hyperlipidemia, unspecified (principal); E03.9 Hypothyroidism, unspecified; I10 Essential (primary) hypertension; E11.9 Type 2 diabetes mellitus without complications; E55.9 Vitamin D deficiency, unspecified
CPT/HCPCS: 36415; 80053; 80061; 82043; 82306; 83036; 84439; 84443; 85027

== ENCOUNTER 2024-12-20 12:44 | Outpatient (CLI) | payer MEDICARE, SELFPAY ==
--- OUTSIDE RECORDS SUMMARY | 2009-10-29 07:00 | XMS_ITS | Continuity of Care Document ---
Author Organization [facility] Address [address] [place] [address] Dr Ortega [address] [place] [phone] Phone Care Team Providers Care Software Licensing Analyst Name Role Phone Nadirrandy Cristian Unavailable Unavailable Procedures Procedure Date Eye Exam & Treatment Refraction Vision Svcs Frames Purchases Vision Svcs Frames Purchases Frames Deluxe TF Polycarb Sphcyl [place] To +/-4d .12-2d Progressive Lens, Plastic Post-op Follow-up Visit Refraction Post-op Follow-up Visit Remove Cataract, Insert Lens PreOp Assessment Performed IOLMaster-Professional Post-op Follow-up Visit Post-op Follow-up Visit Remove Cataract, Insert Lens PreOp Assessment Performed No Charge Cataract Check Office/outpatient Visit, Est Script Printed/Phoned Pt Requ Or Pharm N ot Availab Echo Exam Of Eye Office/outpatient Visit, Est Eye Exam & Treatment Vision Svcs Frames Purchases TF Polycarb Sphcyl [place] To +/-4d .12-2d Anti-reflective Coating Tax - Medical Advance Directives Directive Yes / No Effective Date File Name No Information Encounters Encounter Description Practice Location Reason(s) For Visit Diagnoses Date Provider Providers Copied on Encounter [facility], [address], [place], [place], [address], [place] tel:[phone] [facility] No Information Sep 5-201 0 Enoc Foster. [address] , [address], [place], [place], [facility], . tel:[phone] [facility], [address] [place] [address] [address], [place], [place], [address], [place] tel:[phone] [facility] No Information June-2 8-201 0 [facility] . [address], [address], [place], [place], [address], . tel:[phone] Consulting Provider: Nina Fregoso, [address] [place] [address], [address]. tel:[phone] [facility], [address] [place] [address] [address], [place], [place], [address], [place] tel:[phone] [facility] No Information Feb-0 3-201 0 [facility] . [address], [address], [place], [place], [address], [place]. tel:[phone] Referring Provider: Cristian Mclean, [facility], [place], [facility]. tel:[phone] [facility], [address] [place] [address] [address], [place], [place], [address], [place] tel:[phone] [facility] No Information Dec-0 3-200 9 Brink OD Macho. [address] , [address], [place], [address], [place]. tel:[phone] [facility], [address], [place], [place], [address], [place] tel:[phone] [facility] No Information 8-200 9 Enoc Foster. [address] , [address], [place], [address], [place]. tel:[phone] [facility], [address], [place], [place], [address], [place] tel:[phone] [facility] No Information Nov-1 7-200 9 Enoc Foster. [address] [facility] , [address], [place], [facility], [place]. tel:[phone] [facility], [address], [place], [place], [address], [place] tel:[phone] [facility] No Information Oct-0 6-200 9 Enoc Foster. [address] [place], [place] [address] , [address], [place], [facility], [place]. tel:[phone] Referring Provider: Cristian Mclean, [address] [place], [place] [address], [place], [facility]. tel:[phone] [facility], [address], [place], [place], [address], [place] tel:[phone] [facility] No Information Sep-2 3-200 9 Enoc Foster. [address] [place], [place] [address] , [address], [place], [facility], [place]. tel:[phone] Referring Provider: Cristian Mclean, [address] [place], [place] [address], [place], [facility]. tel:[phone] [facility], [address], [place], [place], [address], [place] tel:[phone] [facility] No Information Sep-0 9-200 9 Enoc Foster. [address] [place], [place] [address] , [address], [place], [facility], [place]. tel:[phone] [facility], [address], [place], [place], [address], [place] tel:[phone] [facility] No Information 0 8200 9 Doisy Edguido. [address] , [address], [place], [facility], [place]. tel:[phone] [facility], [address], [place], [place], [address], [place] tel:[phone] [facility] No Information 8200 9 Doisy Edguido. [address], [address], [place], [facility], [place]. tel:[phone] Referring Provider: Cristian Mclean, [address], [place], [facility]. tel:[phone] Office/outpat ient Visit, [facility], [address] [place] [address] [address], [place], [place], [address], [place] tel:[phone] [facility] No Information 0200 9 Doirandy Edguido. [facility] [address], [address], [place], [address], [place]. tel:[phone] Referring Provider: Cristian Mclean, [address], [place], [facility]. tel:[phone] Office/outpat ient Visit, [facility], [address] [place] [address] [address], [place], [place], [address], [place] tel:[phone] [facility] No Information 6200 9 Doisy Edguido. [facility] [address], [address], [place], [address], [place]. tel:[phone] [facility], [address], [place], [place], [address], [place] tel:[phone] [facility] No Information 3200 8 Doisy Edguido. [address] , [address], [place], [address], [place]. tel:[phone] [facility], [address], [place], [place], [address], [place] tel:[phone] [facility] No Information May-0 3-200 7 [facility] . [address], [address], [place], [place], [address], [place]. tel:[phone] Referring Provider: Cristian Mclean, [address] [facility] [address], [place], [address]. tel:[phone] mcmanus Provider: Nina Fregoso, [address] [facility], [place], [address]. tel:[phone] Family History Family Member Type Diagnosis Age At Onset No Information Payers Payer name Insurance type Covered democrat ID Authoriza tion(s) Medicare [facility] [id number] [place] Commercial [id number] Social History Type Description Quantity Date Captured Comments Sex Female Smoking Status No Information Chief Complaint And Reason For Visit No Information Reason For Referral Reason For Referral No Information History Of Present Illness Encounter Date Complaint History Of Prese nt Illness No Information Functional Status Date Functional Assessmen t No Information Instructions Date Instruction Additional Infor mation No Information Assessments Type Assessment Date No Information Patient Care Teams Name Effective Dates (start - stop) Status Members No Information
--- OUTSIDE RECORDS SUMMARY | 2024-12-20 19:36 | XMS_ITS | Clinical Summary ---
Author Organization [facility] Address [address] [place] [id number] Phone Care Team Providers Care Manager Bar Name Role Phone Martha Parker MD Primary Care Provider [phone] Allergies Active Allergy Reactions Criticality Noted Date Comments Doxycycline Hcl Swelling Low 10/28/2021 Lisinopril Angioedema High 10/28/2021 Penicillins Rash Low 04/21/2012 Medications verapamil ER 24 hour (VERELAN) 240 mg Oral capsule Take 240 mg by mouth daily. 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
[2024-12-20 19:48] LABS: Hematocrit 42.4 % (37.0-47.0); Hemoglobin 13.4 g/dL (12.0-15.0); Mean Corpuscular HGB Conc 31.6 g/dl (32-36); Mean Corpuscular Hemoglobin 28.1 pg (26-34); Mean Corpuscular Volume 88.9 fl (80-100); Platelet Count Result 340 k/mm3 (150-375); Red Blood Count 4.77 M/mm3 (4.2-5.4); White Blood Count 9.5 K/mm3 (4.5-10.0)
[2024-12-20 19:59] LABS: Iron 82 ug/dL (37-170)
[2024-12-20 20:17] LABS: Percent Iron Saturation 24 % (20-50)
[2024-12-20 20:42] LABS: Ferritin 95.70 ng/mL (11.1-264)
== END 2024-12-20 12:45 | disposition home or self-care (01) ==
LOC: ANHGOSHLAB 12:44
PROVIDERS: PCP Family Medicine; Visit Provider Family Medicine
DX: E78.5 Hyperlipidemia, unspecified (principal); R31.9 Hematuria, unspecified; D64.9 Anemia, unspecified
CPT/HCPCS: 36415; 82728; 83540; 83550; 85027; 87086